=== PATIENT | female | born 1930 | race Hispanic/Latino ===

== ENCOUNTER 2017-12-07 13:41 | Inpatient (IN) | payer MEDICARE, OTHER ==
[2017-12-07 15:02] LABS: Basophils # (Auto) 0.1 K/mm3 (0.0-0.1); Eosinophils # (Auto) 0.1 K/mm3 (0.0-0.4); Eosinophils % (Auto) 1.4 % (0.0-4.3); Hematocrit 35.7 % (30.3-42.9); Hemoglobin 11.8 gm/dl (10.1-14.3); Lymphocytes # (Auto) 1.7 K/mm3 (1.2-5.4); Lymphocytes % (Auto) 21.6 % (13.4-35.0); Mean Corpuscular HGB Conc 33 % (30-34); Mean Corpuscular Hemoglobin 32 pg (28-32); Mean Corpuscular Volume 95 fl (79-97); Monocytes # (Auto) 0.8 K/mm3 (0.0-0.8); Monocytes % (Auto) 10.4 % (0.0-7.3); Platelet Count 249 K/mm3 (140-440); Red Blood Count 3.75 M/mm3 (3.65-5.03); Red Cell Distribution Width 14.4 % (13.2-15.2)
[2017-12-07 15:17] LABS: BUN/Creatinine Ratio 27; Blood Urea Nitrogen 16 mg/dL (7-17); Calcium 9.2 mg/dL (8.4-10.2); Hemolysis Index 5
--- NOTE | 2017-12-07 15:26 | Emergency Department Report ---
ED Shortness of Breath HPI - General Chief Complaint: Dyspnea/Respdistress Stated Complaint: SOB Time Seen by Provider: 12/07/17 14:50 Source: patient, EMS Mode of arrival: Stretcher Limitations: No Limitations - History of Present Illness Initial Comments: 3 days of shortness of breath that p/w nonproductive cough. Afebrile. Runny nose. A couple of months ago, she was treated for pneumonia. Her cough never improved though. She was unable to get into her family doctor. So, she came into the ER for evaluation. -: Gradual - Related Data Home Medications Medication Instructions Recorded Confirmed Last Taken Levothyroxine [Synthroid] 75 mcg PO QAM 12/07/17 12/07/17 12/06/17 Lisinopril [Zestril TAB] 10 mg PO QDAY 12/07/17 12/07/17 12/06/17 Multivitamin [Multiple Vitamins] 1 each PO DAILY 12/07/17 12/07/17 12/06/17 Allergies Allergy/AdvReac Type Severity Reaction Status Date / Time No Known Allergies Allergy Unverified 12/07/17 14:16 ED Review of Systems ROS: Stated complaint: SOB Other details as noted in HPI Comment: All other systems reviewed and negative Respiratory: cough, shortness of breath, SOB with exertion ED Past Medical Hx - Social History Smoking Status: Never Smoker - Medications Home Medications: Home Medications Medication Instructions Recorded Confirmed Last Taken Type Levothyroxine [Synthroid] 75 mcg PO QAM 12/07/17 12/07/17 12/06/17 History Lisinopril [Zestril TAB] 10 mg PO QDAY 12/07/17 12/07/17 12/06/17 History Multivitamin [Multiple Vitamins] 1 each PO DAILY 12/07/17 12/07/17 12/06/17 History ED Physical Exam - General Limitations: No Limitations General appearance: alert, in no apparent distress - Head Head exam: Present: atraumatic, normocephalic - Eye Eye exam: Present: normal appearance - ENT ENT exam: Present: mucous membranes moist - Neck Neck exam: Present: normal inspection - Respiratory Respiratory exam: Present: normal lung sounds bilaterally. Absent: respiratory distress - Cardiovascular Cardiovascular Exam: Present: regular rate, normal rhythm. Absent: systolic murmur, diastolic murmur, rubs, gallop - GI/Abdominal GI/Abdominal exam: Present: soft, tenderness - Extremities Exam Extremities exam: Present: normal inspection, pedal edema - Back Exam Back exam: Present: normal inspection - Neurological Exam Neurological exam: Present: alert, oriented X3 - Psychiatric Psychiatric exam: Present: normal affect, normal mood - Skin Skin exam: Present: warm, dry, intact, normal color. Absent: rash ED Course Vital Signs 12/07/17 12/07/17 12/07/17 14:14 14:30 14:45 Pulse Rate 78 73 Respiratory 16 14 38 H Rate Blood Pressure 114/64 O2 Sat by Pulse 89 Oximetry 12/07/17 12/07/17 12/07/17 15:00 15:16 15:30 Pulse Rate 78 74 71 Respiratory 14 12 25 H Rate Blood Pressure 114/64 153/62 134/55 O2 Sat by Pulse 90 91 91 Oximetry 12/07/17 12/07/17 12/07/17 15:46 16:00 17:00 Pulse Rate 73 76 Respiratory 34 H 37 H Rate Blood Pressure 130/74 130/74 130/74 O2 Sat by Pulse 94 94 91 Oximetry ED Medical Decision Making - Lab Data Result diagrams: 12/07/17 14:35 12/07/17 14:35 - EKG Data -: EKG Interpreted by [facility] EKG shows normal: sinus rhythm, axis, intervals, QRS complexes, ST-T waves - Radiology Data Radiology results: image reviewed - Medical Decision Making 87-year-old female presents past medical history of systems ER with progressive onset shortness of breath. Vitals stable on presentation. Patient is well-appearing. Labwork unremarkable. Chest x-ray shows almost complete white out of the left chest. It is concerning for a massive pleural effusion. CT without contrast has been ordered due to contrast allergy. There is a concern for malignancy. Patient will be admitted for further management. Critical care attestation.: If time is entered above; I have spent that time in minutes in the direct care of this critically ill patient, excluding procedure time. ED Disposition Clinical Impression: Pleural effusion, Dyspnea Disposition: OP ADMIT IP TO THIS HOSP Is pt being admited?: Yes Does the pt Need Aspirin: No Condition: Stable Referrals: PRIMARY CARE, [Primary Care Provider] - 3-5 Days
[2017-12-07] MEDS ORDERED: PROVENTIL IH ONE ×2 (15:30→18:05)
--- NOTE | 2017-12-07 16:10 | History and Physical Report ---
History of Present Illness Chief complaint: I keep coughing, my nose is running History of present illness: 87 YO Female with no PMH presents to ED for evalution. Pt states that she has experienced a runny nose and a nonproductive cough for the past week as well as shortness of breath with worsening symptoms over the past 3 days. Pt seen and evaluated in ED and found to have acute respiratory failure secondary to a large left pleural effusion. Pt denies fever, chills, unintentional weight loss , night sweats, bone pain, trauma, BRBPR, hemoptysis, or recent ill contacts. Pt resides in her home with her son. Pt admitted to medical floor. Past History Past Medical History: No medical history, other (reviewed) Past Surgical History: No surgical history, Other (reviewed) Social history: , lives with family. denies: smoking, alcohol abuse, prescription drug abuse Family history: no significant family history (reviewed) Medications and Allergies Allergies Allergy/AdvReac Type Severity Reaction Status Date / Time No Known Allergies Allergy Unverified 12/07/17 14:16 Home Medications Medication Instructions Recorded Confirmed Last Taken Type Levothyroxine [Synthroid] 75 mcg PO QAM 12/07/17 12/07/17 12/06/17 History Lisinopril [Zestril TAB] 10 mg PO QDAY 12/07/17 12/07/17 12/06/17 History Multivitamin [Multiple Vitamins] 1 each PO DAILY 12/07/17 12/07/17 12/06/17 History Review of Systems Constitutional: no weight loss, no weight gain, no fever, no chills Ears, nose, mouth and throat: post-nasal drip, no ear pain, no ear discharge, no tinnitis, no decreased hearing, no nasal congestion, no nasal discharge, no sinus pressure, no sinus pain Breasts: no change in shape, no swelling, no mass Cardiovascular: no chest pain, no orthopnea, no palpitations, no rapid/ irregular heart beat, no edema, no syncope Respiratory: cough, shortness of breath, no excessive sputum, no hemoptysis, no wheezing Gastrointestinal: no abdominal pain, no nausea, no vomiting, no diarrhea, no constipation Genitourinary Female: no pelvic pain, no flank pain, no menorrhagia, no dysuria , no urinary frequency, no urgency Rectal: no pain, no incontinence, no bleeding Musculoskeletal: no neck stiffness, no neck pain, no shooting arm pain, no arm numbness/tingling, no low back pain Integumentary: no rash, no pruritis, no redness, no sores, no wounds, no jaundice, no boils Neurological: no transient paralysis, no paralysis, no weakness, no parathesias , no numbness, no tingling, no seizures, no syncope Psychiatric: no anxiety, no memory loss, no change in sleep habits, no sleep disturbances, no insomnia, no hypersomnia, no change in appetite, no change in libido, no suicidal ideation Endocrine: no cold intolerance, no heat intolerance, no polyphagia, no excessive thirst, no polydipsia, no polyuria, no nocturia, no flushing Hematologic/Lymphatic: no easy bruising, no easy bleeding, no lymphadenopathy, no lymphedema Allergic/Immunologic: no urticaria, no allergic rhinitis, no wheezing, no persistent infections, no anaphylaxis, no angioedema Exam - Constitutional Vitals: Temp Pulse Resp BP Pulse Ox 16 12/07/17 14:14 General appearance: Present: mild distress - EENT Eyes: Present: PERRL ENT: hearing intact, clear oral mucosa - Neck Neck: Present: supple, normal ROM - Respiratory Respiratory: left: diminished, rhonchi - Cardiovascular Heart Sounds: Present: S1 & S2. Absent: rub, click - Extremities Extremities: pulses symmetrical, No edema Peripheral Pulses: within normal limits - Abdominal General gastrointestinal: Present: soft, non-tender, non-distended, normal bowel sounds Female genitourinary: Present: normal - Integumentary Integumentary: Present: clear, warm, dry - Musculoskeletal Musculoskeletal: generalized weakness - Psychiatric Psychiatric: appropriate mood/affect, intact judgment & insight - Neurologic Neurologic: CNII-XII intact, moves all extremities Results - Labs CBC & Chem 7: 12/07/17 14:35 12/07/17 14:35 Labs: Abnormal lab results 12/07/17 12/07/17 Range/Units 14:35 14:35 [place] % (Auto) 10.4 H (0.0-7.3) % Creatinine 0.6 L (0.7-1.2) mg/dL Glucose 107 H (65-100) mg/dL Assessment and Plan - Patient Problems (1) Acute respiratory failure Current Visit: Yes Status: Acute Qualifiers: Respiratory failure complication: hypoxia Qualified Code(s): J96.01 - Acute respiratory failure with hypoxia Plan to address problem: Supplemental oxygen, nebulizer therapy, supportive care, CT chest, NIPPV as clinically indicated, pulse oximetry, pt comfortable, pt maintaining sao2 above 92% on 2-3 L supplemental oxygen. (2) Pleural effusion Current Visit: Yes Status: Acute Plan to address problem: suspect malignant effusion, Pulmonary consulted, IR consulted for thoracentesis , supportive care. (3) DVT prophylaxis Current Visit: Yes Status: Acute
[2017-12-07] MEDS ORDERED: SODIUM CHLORIDE FLUSH SYRINGE 10 ML IV PRN (16:11)
[2017-12-07] MEDS ORDERED: ZOFRAN IV PRN (16:11)
[2017-12-07] MEDS ORDERED: PROVENTIL IH PRN (16:11)
[2017-12-07] MEDS ORDERED: TYLENOL PO PRN (16:11)
--- NOTE | 2017-12-07 16:47 | XRay Report ---
FINAL REPORT PROCEDURE: XR CHEST 1V AP TECHNIQUE: Chest radiograph anteroposterior view. CPT 47495 HISTORY: SOB COMPARISON: No prior studies are available for comparison. FINDINGS: There is a very large pleural-based density in the left sid thorax. There appears to be a large left pleural effusion. Underlying mass is not excluded. Right lung is clear. Heart appears to be enlarged. Visualized pulmonary vasculature does not appear to be distended. No acute bony abnormalities are identified. IMPRESSION: Large left pleural effusion appears to be present. Underlying mass cannot be excluded. Cardiomegaly..
--- NOTE | 2017-12-07 17:23 | Cat Scan Report ---
FINAL REPORT PROCEDURE: CT CHEST WO CON TECHNIQUE: Computerized axial tomography of the chest was performed without contrast material. This study is performed without intravenous contrast and the sensitivity for pathology, including neoplasms, adenopathy, abscess, pulmonary embolism and aortic dissection, is reduced. HISTORY: SOB COMPARISON: Chest x-ray earlier today. TECHNICAL QUALITY: Satisfactory. FINDINGS: Pericardium: No evidence of pericardial effusion. Thoracic aorta: Atherosclerotic changes thoracic aorta. No aneurysm is seen. Coronary arteries: Are partially calcified indicating atherosclerotic disease. Mediastinum and hilar regions: Nonspecific subcentimeter lymph nodes are visualized. No pathologically enlarged lymph nodes or masses are identified. Lung [place]: There is a very large left pleural effusion. There is marked volume loss in the left lung. Only a small portion of the left upper lobe is aerated which shows patchy alveolar densities. There is some linear atelectasis in the right upper lobe medially. No effusion is seen on the right however there appear to be multiple noncalcified pulmonary nodules measuring up to 4 millimeters scattered in the periphery of the right lung. This could represent non calcified granulomatous change or fibrotic change. I cannot exclude metastatic disease. The right lung otherwise is clear. Upper abdomen: No acute or focal abnormality is seen. Other: There is a sclerotic lesion visualized in the left side of the T6 vertebral body measuring approximately 1.4 x 1.5 by 1.6 centimeters suspicious for blastic metastatic disease. IMPRESSION: Very large left pleural effusion is present with diffuse compressive atelectasis of the entire left lung. Underlying mass cannot be excluded. Numerous noncalcified small peripheral nodular density seen in the right lung as described. The differential would include metastatic disease, noncalcified granulomatous change or fibrotic change. Abnormal sclerotic density T6 vertebral body as described suspicious for blastic metastatic disease. Nuclear medicine whole-body bone scan may be helpful for further characterization and evaluation..
[2017-12-07] MEDS: SODIUM CHLORIDE FLUSH SYRINGE 10 ML IV SCH (22:39)
--- NOTE | 2017-12-08 09:11 | Progress Note ---
<GATO HINES - Last Filed: 12/08/17 13:51> Assessment and Plan Assessment and plan: 87 YO Female with no presented to ED for evalution with complaints of cough with very thin sputum and increasing shortness of breath. Pleural effusion Suspected malignant effusion, status post thoracentesis, will follow fluid analysis Ob Tech consult Acute respiratory failure Likely secondary to above, patient will continue supplemental oxygen, nebulizer PRN Hypothyroidism We'll order TSH and T4, patient to resume levothyroxine Hypertension Continue home antihypertensives DVT prophylaxis SCDs for now History Interval history: Patient was seen and examined. On 3L o2 via NC. Labs, chart notes, nursing notes reviewed. Hospitalist Physical - Constitutional Vitals: Temp Pulse Resp BP Pulse Ox 98.7 F 70 20 123/68 90 12/08/17 07:12 12/08/17 07:12 12/08/17 07:12 12/08/17 07:12 12/08/17 07:12 General appearance: Present: no acute distress, well-nourished - EENT Eyes: Present: PERRL, EOM intact ENT: hearing intact, dentition normal - Neck Neck: Present: supple, normal ROM - Respiratory Respiratory effort: normal Respiratory: right: CTA, left: diminished, rhonchi - Cardiovascular Rhythm: regular Heart Sounds: Present: S1 & S2 - Extremities Extremities: no ischemia, No edema - Abdominal General gastrointestinal: soft, non-tender, non-distended - Integumentary Integumentary: Present: clear, warm, dry - Psychiatric Psychiatric: appropriate mood/affect, intact judgment & insight, cooperative - Neurologic Neurologic: CNII-XII intact, moves all extremities Results - Labs CBC & Chem 7: 12/07/17 14:35 12/07/17 14:35 Labs: Laboratory Last Values WBC 7.7 K/mm3 (4.5-11.0) 12/07/17 14:35 RBC 3.75 M/mm3 (3.65-5.03) 12/07/17 14:35 Hgb 11.8 gm/dl (10.1-14.3) 12/07/17 14:35 Hct 35.7 % (30.3-42.9) 12/07/17 14:35 MCV 95 fl (79-97) 12/07/17 14:35 MCH 32 pg (28-32) 12/07/17 14:35 MCHC 33 % (30-34) 12/07/17 14:35 RDW 14.4 % (13.2-15.2) 12/07/17 14:35 Plt Count 249 K/mm3 (140-440) 12/07/17 14:35 Lymph % (Auto) 21.6 % (13.4-35.0) 12/07/17 14:35 [place] % (Auto) 10.4 % (0.0-7.3) H 12/07/17 14:35 Eos % (Auto) 1.4 % (0.0-4.3) 12/07/17 14:35 Baso % (Auto) 1.0 % (0.0-1.8) 12/07/17 14:35 Lymph # 1.7 K/mm3 (1.2-5.4) 12/07/17 14:35 [place] # 0.8 K/mm3 (0.0-0.8) 12/07/17 14:35 Eos # 0.1 K/mm3 (0.0-0.4) 12/07/17 14:35 Baso # 0.1 K/mm3 (0.0-0.1) 12/07/17 14:35 Seg Neutrophils % 65.6 % (40.0-70.0) 12/07/17 14:35 Seg Neutrophils # 5.1 K/mm3 (1.8-7.7) 12/07/17 14:35 Sodium 137 mmol/L (137-145) 12/07/17 14:35 Potassium 4.1 mmol/L (3.6-5.0) 12/07/17 14:35 Chloride 101.3 mmol/L (98-107) 12/07/17 14:35 Carbon Dioxide 26 mmol/L (22-30) 12/07/17 14:35 Anion Gap 14 mmol/L 12/07/17 14:35 BUN 16 mg/dL (7-17) 12/07/17 14:35 Creatinine 0.6 mg/dL (0.7-1.2) L 12/07/17 14:35 Estimated GFR > 60 ml/min 12/07/17 14:35 BUN/Creatinine Ratio 27 % 12/07/17 14:35 Glucose 107 mg/dL (65-100) H 12/07/17 14:35 Calcium 9.2 mg/dL (8.4-10.2) 12/07/17 14:35 Troponin T < 0.010 ng/mL (0.00-0.029) 12/07/17 15:33 NT-Pro-B Natriuret Pep 48.51 pg/mL (0-900) 12/07/17 15:33 <ARELIS VELAZQUEZ - Last Filed: 12/08/17 19:03> Assessment and Plan Assessment and plan: I saw and evaluated the patient. I agree with the findings and the plan of care as documented in the physician medical support assistant ~note, with the following corrections and additions. Pneumothorax * Surgery consulted for chest tube placement. Discussed with daughter and patient in detail. Will also follow thoracentesis fluid analysis. Without any difficulty at this time. The high probability of a clinically significant, sudden or life threatening deterioration of the [pulmonary] system(s) required my full and direct attention , intervention and personal management. The aggregate critical care time was [35 ] minutes. This time is in addition to time spent performing reported procedures but includes the following: [x] Data Review and interpretation [x] Patient assessment and monitoring of vital signs [x] Documentation [x] Medication orders and management Hospitalist Physical - Constitutional Vitals: Temp Pulse Resp BP Pulse Ox 98.0 F 76 20 134/69 94 12/08/17 14:53 12/08/17 14:53 12/08/17 14:53 12/08/17 14:53 12/08/17 14:53 Results - Labs CBC & Chem 7: 12/07/17 14:35 12/07/17 14:35 Labs: Laboratory Last Values WBC 7.7 K/mm3 (4.5-11.0) 12/07/17 14:35 RBC 3.75 M/mm3 (3.65-5.03) 12/07/17 14:35 Hgb 11.8 gm/dl (10.1-14.3) 12/07/17 14:35 Hct 35.7 % (30.3-42.9) 12/07/17 14:35 MCV 95 fl (79-97) 12/07/17 14:35 MCH 32 pg (28-32) 12/07/17 14:35 MCHC 33 % (30-34) 12/07/17 14:35 RDW 14.4 % (13.2-15.2) 12/07/17 14:35 Plt Count 249 K/mm3 (140-440) 12/07/17 14:35 Lymph % (Auto) 21.6 % (13.4-35.0) 12/07/17 14:35 [place] % (Auto) 10.4 % (0.0-7.3) H 12/07/17 14:35 Eos % (Auto) 1.4 % (0.0-4.3) 12/07/17 14:35 Baso % (Auto) 1.0 % (0.0-1.8) 12/07/17 14:35 Lymph # 1.7 K/mm3 (1.2-5.4) 12/07/17 14:35 [place] # 0.8 K/mm3 (0.0-0.8) 12/07/17 14:35 Eos # 0.1 K/mm3 (0.0-0.4) 12/07/17 14:35 Baso # 0.1 K/mm3 (0.0-0.1) 12/07/17 14:35 Seg Neutrophils % 65.6 % (40.0-70.0) 12/07/17 14:35 Seg Neutrophils # 5.1 K/mm3 (1.8-7.7) 12/07/17 14:35 PT 13.0 Sec. (12.2-14.9) 12/08/17 09:51 INR 0.94 (0.87-1.13) 12/08/17 09:51 Sodium 137 mmol/L (137-145) 12/07/17 14:35 Potassium 4.1 mmol/L (3.6-5.0) 12/07/17 14:35 Chloride 101.3 mmol/L (98-107) 12/07/17 14:35 Carbon Dioxide 26 mmol/L (22-30) 12/07/17 14:35 Anion Gap 14 mmol/L 12/07/17 14:35 BUN 16 mg/dL (7-17) 12/07/17 14:35 Creatinine 0.6 mg/dL (0.7-1.2) L 12/07/17 14:35 Estimated GFR > 60 ml/min 12/07/17 14:35 BUN/Creatinine Ratio 27 % 12/07/17 14:35 Glucose 107 mg/dL (65-100) H 12/07/17 14:35 Calcium 9.2 mg/dL (8.4-10.2) 12/07/17 14:35 Troponin T < 0.010 ng/mL (0.00-0.029) 12/07/17 15:33 NT-Pro-B Natriuret Pep 48.51 pg/mL (0-900) 12/07/17 15:33 TSH 1.380 mlU/mL (0.270-4.200) 12/08/17 15:28 Thyroxine (T4) 8.9 ug/dL (4.0-12.0) 12/08/17 15:28 Fluid Type Pleural 12/08/17 Unknown Fluid Color Yellow 12/08/17 Unknown Fluid Appearance Clear 12/08/17 Unknown Fluid pH 7.467 12/08/17 Unknown Fluid WBC 120 /mm3 12/08/17 Unknown Fluid RBC 117 /mm3 12/08/17 Unknown Fluid Seg Neutrophils 3.0 % 12/08/17 Unknown Fluid Lymphocytes 30.0 % 12/08/17 Unknown Fluid Reactive Lymphs 0 % 12/08/17 Unknown Fluid Monocytes 62.0 % 12/08/17 Unknown Fluid Eosinophils 5.0 % 12/08/17 Unknown Fluid Basophils 0 % 12/08/17 Unknown Fluid Comment Diff performed 12/08/17 Unknown - Imaging and Cardiology Chest x-ray: image reviewed (pneumothorax)
[2017-12-08] MEDS: SODIUM CHLORIDE FLUSH SYRINGE 10 ML IV SCH ×2 (09:14→23:05)
[2017-12-08 10:48] LABS: INR 0.94 (0.87-1.13)
[2017-12-08 12:51] LABS: pH, Body Fluid 7.467
--- NOTE | 2017-12-08 12:51 | Procedure Note ---
Date of procedure: 12/08/17 Pre-op diagnosis: left pleural effusion Post-op diagnosis: same Procedure: US thoracentesis, left Anesthesia: local Surgeon: MONSE CALZADA Estimated blood loss: none Pathology: list (120cc) Specimen disposition: to lab Condition: stable Disposition: floor
--- NOTE | 2017-12-08 13:50 | Ultrasound Report ---
ULTRASOUND THORACENTESIS History: Left pleural effusion Description of procedure: Informed consent was obtained. Sterile technique was utilized. 1% lidocaine for skin anesthesia. Using ultrasound guidance, a 5 [place] centesis needle was advanced into the left pleural space. There was spontaneous return of relatively clear yellow fluid. 2.2 L of fluid was aspirated. 120 cc of fluid was sent to the lab for analysis. No complications. Impression: Successful ultrasound guided left thoracentesis as described.
--- NOTE | 2017-12-08 14:13 | XRay Report ---
AP CHEST: HISTORY: Short of breath, left pleural effusion, recent ultrasound-guided left thoracentesis Recent ultrasound-guided left thoracentesis was performed in which 2.2 L of fluid was removed. Followup AP chest demonstrates a small to medium left pneumothorax which is estimated at 15-20%. The pneumothorax measures up to 1.8 cm from the left lateral thoracic wall. There is near-complete evacuation of the left pleural fluid. The right lung remains clear. Heart size is within normal limits. IMPRESSION: Left pneumothorax after thoracentesis as described. Dr. Gibson was paged at 1400 hrs. to be notified of these findings. I went to see the patient on the second floor she was in no acute distress.
[2017-12-08 14:22] LABS: Total Cells Counted 100 /mm3
--- NOTE | 2017-12-08 17:11 | XRay Report ---
FINAL REPORT PROCEDURE: XR CHEST 1V AP 1605 hours 12/08/2017 TECHNIQUE: Chest radiograph anteroposterior view. CPT 33919 HISTORY: re-evaluate left pneumothorax COMPARISON: Prior study performed 1346 hours on 12/08/2017 FINDINGS: Large left-sided pneumothorax again visualized. This has enlarged. Previously the distance between the lateral pleural surface in the lateral chest wall inferiorly was 1.8 centimeters now 2.7 centimeters. There is increasing consolidation in the left lung suggesting atelectasis or pneumonia. Underlying pulmonary nodules are not excluded. Small amount of right basilar atelectasis is visualized. Heart size upper normal. Pulmonary vasculature is not distended. IMPRESSION: Large left-sided pneumothorax has enlarged since earlier today. There is worsening consolidation in the left lung as described above. Heart size upper normal.
[2017-12-08] MEDS ORDERED: XYLOCAINE 1% 20 mL INFILTRATI STA (18:25)
[2017-12-08] MEDS ORDERED: ATIVAN IV ONE (18:45)
--- NOTE | 2017-12-08 18:53 | Consultation ---
History of Present Illness Consult date: 12/08/17 Requesting physician: ARELIS VELAZQUEZ Reason for consult: dyspnea History of present illness: 87 yo with SOB since her "pneumonia" 07/2017, but particularly worse the past week or so. She has had cough/congestion. No wheezing, fevers, chills, chest pain, hemoptysis. Lifelong nonsmoker. Active Medications Acetaminophen (Tylenol) 650 mg PO Q4H PRN PRN Reason: Pain MILD(1-3)/Fever >100.5/MORA Albuterol (Proventil) 2.5 mg IH Q4HRT PRN PRN Reason: Shortness Of Breath Levothyroxine Sodium (Synthroid) 75 mcg PO DAILY@0600 TOMY Lisinopril (Zestril) 10 mg PO QDAY TOMY Ondansetron HCl (Zofran) 4 mg IV Q8H PRN PRN Reason: Nausea And Vomiting Oxycodone/Acetaminophen (Percocet 5/325) 1 tab PO Q6H PRN PRN Reason: Pain, Moderate (4-6) Sodium Chloride (Sodium Chloride Flush Syringe 10 Ml) 10 ml IV BID [facility] Last Admin: 12/08/17 09:14 Dose: 10 ml Sodium Chloride (Sodium Chloride Flush Syringe 10 Ml) 10 ml IV PRN PRN PRN Reason: LINE FLUSH Past History Past Medical History: No medical history, other (reviewed) Past Surgical History: No surgical history, Other (reviewed) Social history: , lives with family. denies: smoking, alcohol abuse, prescription drug abuse Family history: no significant family history (reviewed) Medications and Allergies Allergies Allergy/AdvReac Type Severity Reaction Status Date / Time No Known Allergies Allergy Unverified 12/07/17 14:16 Home Medications Medication Instructions Recorded Confirmed Last Taken Type Levothyroxine [Synthroid] 75 mcg PO QAM 12/07/17 12/07/17 12/06/17 History Lisinopril [Zestril TAB] 10 mg PO QDAY 12/07/17 12/07/17 12/06/17 History Multivitamin [Multiple Vitamins] 1 each PO DAILY 12/07/17 12/07/17 12/06/17 History Active Meds: Active Medications Acetaminophen (Tylenol) 650 mg PO Q4H PRN PRN Reason: Pain MILD(1-3)/Fever >100.5/MORA Albuterol (Proventil) 2.5 mg IH Q4HRT PRN PRN Reason: Shortness Of Breath Levothyroxine Sodium (Synthroid) 75 mcg PO DAILY@0600 [facility] Lisinopril (Zestril) 10 mg PO QDAY [facility] Ondansetron HCl (Zofran) 4 mg IV Q8H PRN PRN Reason: Nausea And Vomiting Oxycodone/Acetaminophen (Percocet 5/325) 1 tab PO Q6H PRN PRN Reason: Pain, Moderate (4-6) Sodium Chloride (Sodium Chloride Flush Syringe 10 Ml) 10 ml IV BID [facility] Last Admin: 12/08/17 09:14 Dose: 10 ml Sodium Chloride (Sodium Chloride Flush Syringe 10 Ml) 10 ml IV PRN PRN PRN Reason: LINE FLUSH Physical Examination Vital signs: Vital Signs Resp 16 12/07/17 14:14 General appearance: no acute distress, alert Eyes: non-icteric Neck: supple Effort: normal Ascultation: Left: diminished breath sounds Cardiovascular: regular rate and rhythm (no mrg) Gastrointestinal: normoactive bowel sounds, soft, non-tender, non-distended Integumentary: normal Extremities: no cyanosis, no edema Musculoskeletal: no deformities normal mental status, non-focal exam, pupils equal and round, CN II-XII normal mood appropriate, affect normal Results - Laboratory Findings CBC and BMP: 12/07/17 14:35 12/07/17 14:35 PT/INR, D-dimer PT 13.0 Sec. (12.2-14.9) 12/08/17 09:51 INR 0.94 (0.87-1.13) 12/08/17 09:51 Abnormal lab findings: Abnormal Labs 12/07/17 12/07/17 14:35 14:35 Cole % (Auto) 10.4 H Creatinine 0.6 L Glucose 107 H - Diagnostic Findings Chest x-ray: report reviewed, image reviewed CT scan - chest: report reviewed, image reviewed Assessment and Plan Imp: 1. Large L effusion; DDx includes parapneumonic versus malignancy 2. PTX versus trapped lung 3. Compressive atelectasis 4. Essential HTN 5. Acute respiratory failure, hypoxia Rec: 1. Add Levaquin 750mg daily 2. F/u PFA including culture/cytology 3. General surgery has agreed to place chest tube; if lung does not fully re- expand would be compatible with trapped lung 4. Initial CT chest basically worthless due to atelectatic L lung; will repeat in AM with contrast s/p drainage of the effusion to ensure no underlying mass, etc. Plan of care reviewed with patient, she understands/agrees Thanks for the consult. Will follow.
--- NOTE | 2017-12-08 19:39 | Consultation ---
History of Present Illness Consult date: 12/08/17 Requesting physician: ARELIS WITT Chief complaint: pneumothorax - History of present illness History of present illness: 87 yo F with hx of hypothyroidism, HTN presented to hospital with increasing SOB and dyspnea on exertion. The patient was found to have a left pleural effusion. She underwent thoracentesis today and post procedure CXR showed pneumothorax. The subsequent Xray several hours later showed worsening of Pneumothorax. The patient states she feels SOB and is having pain over her left chest with deep breaths. Called by Dr. Witt to evaluate for chest tube placement. Past History Past Medical History: hypertension, other (hypothyroidism) Past Surgical History: No surgical history, Other (reviewed) Social history: , lives with family. denies: smoking, alcohol abuse, prescription drug abuse Family history: no significant family history (reviewed) Medications and Allergies Allergies Allergy/AdvReac Type Severity Reaction Status Date / Time No Known Allergies Allergy Unverified 12/07/17 14:16 Home Medications Medication Instructions Recorded Confirmed Last Taken Type Levothyroxine [Synthroid] 75 mcg PO QAM 12/07/17 12/07/17 12/06/17 History Lisinopril [Zestril TAB] 10 mg PO QDAY 12/07/17 12/07/17 12/06/17 History Multivitamin [Multiple Vitamins] 1 each PO DAILY 12/07/17 12/07/17 12/06/17 History Active Meds: Active Medications Acetaminophen (Tylenol) 650 mg PO Q4H PRN PRN Reason: Pain MILD(1-3)/Fever >100.5/MORA Albuterol (Proventil) 2.5 mg IH Q4HRT PRN PRN Reason: Shortness Of Breath Levofloxacin (Levaquin) 750 mg PO Q24HR TOMY Levothyroxine Sodium (Synthroid) 75 mcg PO DAILY@0600 TOMY Lisinopril (Zestril) 10 mg PO QDAY TOMY Ondansetron HCl (Zofran) 4 mg IV Q8H PRN PRN Reason: Nausea And Vomiting Oxycodone/Acetaminophen (Percocet 5/325) 1 tab PO Q6H PRN PRN Reason: Pain, Moderate (4-6) Sodium Chloride (Sodium Chloride Flush Syringe 10 Ml) 10 ml IV BID [facility] Last Admin: 04/19/18 09:14 Dose: 10 ml Sodium Chloride (Sodium Chloride Flush Syringe 10 Ml) 10 ml IV PRN PRN PRN Reason: LINE FLUSH Exam Vital Signs Resp 16 12/07/17 14:14 Narrative exam: Gen: AAOx3. NAD ENT: no scleral icterus or conjunctival pallor CV: s1, s2+ resp: even and unlabored Abd: soft Ext: no c/c/e Results - Labs 12/07/17 14:35 12/07/17 14:35 Thyroid panel 12/08/17 12/08/17 Range/Units 15:28 15:28 TSH 1.380 (0.270-4.200) mlU/mL Thyroxine (T4) 8.9 (4.0-12.0) ug/dL Pituitary panel 12/08/17 12/08/17 Range/Units 15:28 15:28 TSH 1.380 (0.270-4.200) mlU/mL Thyroxine (T4) 8.9 (4.0-12.0) ug/dL - Imaging Chest x-ray: report reviewed, image reviewed CT scan - chest: report reviewed, image reviewed Assessment and Plan 87 yo F with Left sided pneumothorax s/p thoracentesis Plan: 1. will place left sided chest tube. All risks, benefits and alternatives discussed with patient and questions answered, consent signed. 2. Chest tube -[id number] suction 3. pulm toilet/incentive spirometry 4. wean o2 5. prn pain control 6. CXR in am Thank you for this consultation, please call with questions or concerns.
--- NOTE | 2017-12-08 19:49 | Procedure Note ---
Date of procedure: 12/08/17 Pre-op diagnosis: left side pneumothorax Post-op diagnosis: same Procedure: placement of left sided chest tube Findings: 87 yo F with LEFT sided pneumothorax s/p thoracentesis today. All risks, benefits, and alternatives of chest tube placement discussed with patient and consent signed. Left chest was prepped and draped in usual sterile fashion. A time out was performed with nursing present. The skin over the 4th intercostal space in the midaxillary line was infiltrated with 1% lidocaine. A small incision was made using a 15 blade. The subcutaneous tissue and pleural space were infiltrated with 1% lidocaine. The pigtail catheter over dilator/stylette was inserted through the incision and over the rib. This was advanced through the pleura and a pop was felt. The stylette was withdrawn and there was air and pleural fluid aspirated through the syringe. The pigtail catheter was advanced over the dilator and the dilator withdrawn. There was a amaya of air that exited the catheter. This was connected to tubing and connected to pleur-e-vac on -[id number] suction. There was respiratory variation and tidaling in the tubing. The pigtail catheter was secured to the skin using 0-silk drain stitch. This was covered with an occlusive sterile dressing. There was a forced expiratory air leak in the pleur-e-vac after the procedure. The patient tolerated the procedure well. All sharps and instruments were disposed of appropriately. Implants: Pigtail catheter Anesthesia: local Surgeon: NEISHA MONTE Estimated blood loss: minimal Pathology: none Condition: stable Disposition: floor
--- NOTE | 2017-12-08 20:05 | XRay Report ---
FINAL REPORT PROCEDURE: XR CHEST 1V AP TECHNIQUE: Chest radiograph anteroposterior view. CPT 12292 HISTORY: chest tube placement COMPARISON: Prior chest x-ray today at 1606 hours FINDINGS: Since the prior study earlier today a small caliber left chest tube has been placed. There is only small pneumothorax remaining inferiorly laterally. Patchy alveolar densities are present throughout the lower 2/3 of the left lung may representing atelectasis. Pneumonia and/or pulmonary nodules are not excluded. Subcutaneous emphysematous changes are seen along the lateral aspect of the left chest wall. Right lung is clear. Heart size and pulmonary vasculature appear normal. IMPRESSION: Interval placement small caliber left chest tube. Only small pneumothorax remaining inferiorly laterally. Patchy alveolar densities again visualized lower 2/3 left lung as described.
[2017-12-08] MEDS: LEVAQUIN PO SCH (23:05)
[2017-12-09] MEDS: SYNTHROID PO SCH (06:06)
[2017-12-09] MEDS: PERCOCET 5/325 PO PRN ×3 (06:24→22:05)
--- NOTE | 2017-12-09 08:36 | XRay Report ---
PORTABLE CHEST INDICATION: Left chest tube. COMPARISON: 7:44 PM yesterday. FINDINGS: Portable, frontal chest radiograph, 7:37 AM, 12/09/2017 again demonstrates a left lower lung small bore chest tube with its tip pointing caudad. No significant left pneumothorax. Mild left subcutaneous emphysema persists. Left mid to lower lung opacities again present, though slightly improved/less dense. Right hemidiaphragm approximately 2.5 cm higher than the left. Mild hazy opacity blunting the right lateral costophrenic angle may represent atelectasis and/or pleural fluid. Stable cardiomediastinal silhouette and bony degenerative changes. EKG leads. Mild apical scarring/pleural thickening, more so on the left. CONCLUSION: 1. Stable left lower lung small bore chest tube and left subcutaneous emphysema without significant pneumothorax. Improving left mid to lower lung airspace opacity. 2. Mildly elevated right hemidiaphragm and right basilar haziness. Thank you for the opportunity to participate in this patient's care.
[2017-12-09] MEDS ORDERED: ZOFRAN IV PRN (08:40)
[2017-12-09] MEDS ORDERED: NACL ONE (08:43)
--- NOTE | 2017-12-09 09:10 | Progress Note ---
<GATO HINES - Last Filed: 12/09/17 15:54> Assessment and Plan Assessment and plan: 87 YO Female with no presented to ED for evalution with complaints of cough with very thin sputum and increasing shortness of breath. 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 Sed Special Education Teacher following, oncologist consulted Acute DVT EVIDENCE OF ACUTE DVT IN THE LT.MID PERONEAL VEIN AT MID CALF, Patient on heparin Acute PE Secondary to above, patient initiated on Heparin drip PTX Patient will continue chest tube suction Pulm toilet/incentive spirometry Acute respiratory failure Likely secondary to above, patient will continue supplemental oxygen, nebulizer PRN Hypothyroidism We'll order TSH and T4, patient to resume levothyroxine Hypertension Continue home antihypertensives DVT prophylaxis Patient on heparin Treatment plan discussed with patient and daughter Estrella History Interval history: Patient was seen and examined. Complains of pain at incision site. No other complaints at this time. Labs, chart notes, nursing notes reviewed. Hospitalist Physical - Constitutional Vitals: Temp Pulse Resp BP Pulse Ox 97.7 F 76 19 124/57 96 12/09/17 07:24 12/09/17 07:24 12/09/17 07:24 12/09/17 07:24 12/09/17 07:24 General appearance: Present: no acute distress, well-nourished - EENT Eyes: Present: PERRL, EOM intact ENT: hearing intact, clear oral mucosa - Neck Neck: Present: supple, normal ROM - Respiratory Respiratory effort: normal Respiratory: right: CTA, left: diminished - Cardiovascular Rhythm: regular Heart Sounds: Present: S1 & S2 - Extremities Extremities: no ischemia, No edema - Abdominal General gastrointestinal: soft, non-tender, non-distended - Integumentary Integumentary: Present: clear, warm, dry - Psychiatric Psychiatric: appropriate mood/affect, intact judgment & insight, cooperative - Neurologic Neurologic: CNII-XII intact, moves all extremities Results - Labs CBC & Chem 7: 12/09/17 12:07 12/07/17 14:35 Labs: Laboratory Last Values WBC 7.7 K/mm3 (4.5-11.0) 12/07/17 14:35 RBC 3.75 M/mm3 (3.65-5.03) 12/07/17 14:35 Hgb 11.8 gm/dl (10.1-14.3) 12/07/17 14:35 Hct 35.7 % (30.3-42.9) 12/07/17 14:35 MCV 95 fl (79-97) 12/07/17 14:35 MCH 32 pg (28-32) 12/07/17 14:35 MCHC 33 % (30-34) 12/07/17 14:35 RDW 14.4 % (13.2-15.2) 12/07/17 14:35 Plt Count 249 K/mm3 (140-440) 12/07/17 14:35 Lymph % (Auto) 21.6 % (13.4-35.0) 12/07/17 14:35 [place] % (Auto) 10.4 % (0.0-7.3) H 12/07/17 14:35 Eos % (Auto) 1.4 % (0.0-4.3) 12/07/17 14:35 Baso % (Auto) 1.0 % (0.0-1.8) 12/07/17 14:35 Lymph # 1.7 K/mm3 (1.2-5.4) 12/07/17 14:35 [place] # 0.8 K/mm3 (0.0-0.8) 12/07/17 14:35 Eos # 0.1 K/mm3 (0.0-0.4) 12/07/17 14:35 Baso # 0.1 K/mm3 (0.0-0.1) 12/07/17 14:35 Seg Neutrophils % 65.6 % (40.0-70.0) 12/07/17 14:35 Seg Neutrophils # 5.1 K/mm3 (1.8-7.7) 12/07/17 14:35 PT 13.0 Sec. (12.2-14.9) 12/08/17 09:51 INR 0.94 (0.87-1.13) 12/08/17 09:51 Sodium 137 mmol/L (137-145) 12/07/17 14:35 Potassium 4.1 mmol/L (3.6-5.0) 12/07/17 14:35 Chloride 101.3 mmol/L (98-107) 12/07/17 14:35 Carbon Dioxide 26 mmol/L (22-30) 12/07/17 14:35 Anion Gap 14 mmol/L 12/07/17 14:35 BUN 16 mg/dL (7-17) 12/07/17 14:35 Creatinine 0.6 mg/dL (0.7-1.2) L 12/07/17 14:35 Estimated GFR > 60 ml/min 12/07/17 14:35 BUN/Creatinine Ratio 27 % 12/07/17 14:35 Glucose 107 mg/dL (65-100) H 12/07/17 14:35 Calcium 9.2 mg/dL (8.4-10.2) 12/07/17 14:35 Troponin T < 0.010 ng/mL (0.00-0.029) 12/07/17 15:33 NT-Pro-B Natriuret Pep 48.51 pg/mL (0-900) 12/07/17 15:33 TSH 1.380 mlU/mL (0.270-4.200) 12/08/17 15:28 Thyroxine (T4) 8.9 ug/dL (4.0-12.0) 12/08/17 15:28 Fluid Type Pleural 12/08/17 Unknown Fluid Color Yellow 12/08/17 Unknown Fluid Appearance Clear 12/08/17 Unknown Fluid pH 7.467 12/08/17 Unknown Fluid WBC 120 /mm3 12/08/17 Unknown Fluid RBC 117 /mm3 12/08/17 Unknown Fluid Seg Neutrophils 3.0 % 12/08/17 Unknown Fluid Lymphocytes 30.0 % 12/08/17 Unknown Fluid Reactive Lymphs 0 % 12/08/17 Unknown Fluid Monocytes 62.0 % 12/08/17 Unknown Fluid Eosinophils 5.0 % 12/08/17 Unknown Fluid Basophils 0 % 12/08/17 Unknown Fluid Comment Diff performed 12/08/17 Unknown <ARELIS VELAZQUEZ - Last Filed: 12/09/17 21:27> Assessment and Plan Assessment and plan: I saw and evaluated the patient. I agree with the findings and the plan of care as documented in the Physician Kettle Tender's~note, with the following corrections and additions. Findings discharged with patient. Oncologist consulted. Heparin started. Hospitalist Physical - Constitutional Vitals: Temp Pulse Resp BP Pulse Ox 97.5 F L 76 16 108/49 98 12/09/17 13:54 12/09/17 10:00 12/09/17 13:54 12/09/17 13:54 12/09/17 10:00 Results - Labs CBC & Chem 7: 12/09/17 12:07 12/07/17 14:35 Labs: Laboratory Last Values WBC 7.7 K/mm3 (4.5-11.0) 12/07/17 14:35 RBC 3.75 M/mm3 (3.65-5.03) 12/07/17 14:35 Hgb 12.0 gm/dl (10.1-14.3) 12/09/17 12:07 Hct 36.4 % (30.3-42.9) 12/09/17 12:07 MCV 95 fl (79-97) 12/07/17 14:35 MCH 32 pg (28-32) 12/07/17 14:35 MCHC 33 % (30-34) 12/07/17 14:35 RDW 14.4 % (13.2-15.2) 12/07/17 14:35 Plt Count 240 K/mm3 (140-440) 12/09/17 12:07 Lymph % (Auto) 21.6 % (13.4-35.0) 12/07/17 14:35 [place] % (Auto) 10.4 % (0.0-7.3) H 12/07/17 14:35 Eos % (Auto) 1.4 % (0.0-4.3) 12/07/17 14:35 Baso % (Auto) 1.0 % (0.0-1.8) 12/07/17 14:35 Lymph # 1.7 K/mm3 (1.2-5.4) 12/07/17 14:35 [place] # 0.8 K/mm3 (0.0-0.8) 12/07/17 14:35 Eos # 0.1 K/mm3 (0.0-0.4) 12/07/17 14:35 Baso # 0.1 K/mm3 (0.0-0.1) 12/07/17 14:35 Seg Neutrophils % 65.6 % (40.0-70.0) 12/07/17 14:35 Seg Neutrophils # 5.1 K/mm3 (1.8-7.7) 12/07/17 14:35 PT 13.7 Sec. (12.2-14.9) 12/09/17 12:07 INR 1.00 (0.87-1.13) 12/09/17 12:07 APTT 33.7 Sec. (24.2-36.6) 12/09/17 12:07 Heparin Anti-Xa Level 0.54 U.I./ml (0.3-0.7) 12/09/17 18:50 Sodium 137 mmol/L (137-145) 12/07/17 14:35 Potassium 4.1 mmol/L (3.6-5.0) 12/07/17 14:35 Chloride 101.3 mmol/L (98-107) 12/07/17 14:35 Carbon Dioxide 26 mmol/L (22-30) 12/07/17 14:35 Anion Gap 14 mmol/L 12/07/17 14:35 BUN 16 mg/dL (7-17) 12/07/17 14:35 Creatinine 0.6 mg/dL (0.7-1.2) L 12/07/17 14:35 Estimated GFR > 60 ml/min 12/07/17 14:35 BUN/Creatinine Ratio 27 % 12/07/17 14:35 Glucose 107 mg/dL (65-100) H 12/07/17 14:35 Calcium 9.2 mg/dL (8.4-10.2) 12/07/17 14:35 Troponin T < 0.010 ng/mL (0.00-0.029) 12/07/17 15:33 NT-Pro-B Natriuret Pep 48.51 pg/mL (0-900) 12/07/17 15:33 TSH 1.380 mlU/mL (0.270-4.200) 12/08/17 15:28 Thyroxine (T4) 8.9 ug/dL (4.0-12.0) 12/08/17 15:28 Fluid Type Pleural 12/08/17 Unknown Fluid Color Yellow 12/08/17 Unknown Fluid Appearance Clear 12/08/17 Unknown Fluid pH 7.467 12/08/17 Unknown Fluid WBC 120 /mm3 12/08/17 Unknown Fluid RBC 117 /mm3 12/08/17 Unknown Fluid Seg Neutrophils 3.0 % 12/08/17 Unknown Fluid Lymphocytes 30.0 % 12/08/17 Unknown Fluid Reactive Lymphs 0 % 12/08/17 Unknown Fluid Monocytes 62.0 % 12/08/17 Unknown Fluid Eosinophils 5.0 % 12/08/17 Unknown Fluid Basophils 0 % 12/08/17 Unknown Fluid Comment Diff performed 12/08/17 Unknown
--- NOTE | 2017-12-09 09:26 | Progress Note ---
Assessment and Plan 87 yo F with Left sided pneumothorax s/p thoracentesis Status post left chest tube placement 12/08/17 Plan: 1. CXR and CT chest reviewed - continue Chest tube -[id number] suction 2. repeat CXR in am - if no PTX will place chest tube to water seal. 3. pulm toilet/incentive spirometry 4. wean o2 5. prn PO pain control 6. pulm consult pending Thank you for this consultation, please call with questions or concerns. Subjective Date of service: 12/09/17 Narrative: Patient seen and examined at bedside. She complains of mild pain at the chest tube site. No fevers, chills, chest pain. Shortness of breath has improved. Objective Vital Signs - 12hr 12/08/17 12/09/17 12/09/17 22:00 02:22 07:24 Temperature 97.6 F 97.7 F Pulse Rate 83 84 76 Respiratory 20 19 Rate Blood Pressure 114/60 124/57 O2 Sat by Pulse 87 96 Oximetry - General physical appearance Narrative Exam: Gen.: Awake, alert, oriented 3. CV: S1, S2 present Respiratory: Clear to auscultation bilaterally, no wheezes, rales, rhonchi. Left chest tube in place, on suction, with serous pleural fluid and tubing and canister. There is a mild forced expiratory air leak which resolved after several coughs. There is good respiratory variation and tidling in the tubing. Chest tube dressing is clean, dry, intact. Extremities: No clubbing, cyanosis, edema - Labs 12/07/17 14:35 12/07/17 14:35 Thyroid panel 12/08/17 12/08/17 Range/Units 15:28 15:28 TSH 1.380 (0.270-4.200) mlU/mL Thyroxine (T4) 8.9 (4.0-12.0) ug/dL Pituitary panel 12/08/17 12/08/17 Range/Units 15:28 15:28 TSH 1.380 (0.270-4.200) mlU/mL Thyroxine (T4) 8.9 (4.0-12.0) ug/dL
[2017-12-09] MEDS ORDERED: SYNTHROID PO SCH (10:00)
[2017-12-09] MEDS: LEVAQUIN PO SCH (11:15)
[2017-12-09] MEDS: ZESTRIL PO SCH (11:15)
[2017-12-09] MEDS: SODIUM CHLORIDE FLUSH SYRINGE 10 ML IV SCH ×2 (11:15→22:06)
--- NOTE | 2017-12-09 11:31 | Cat Scan Report ---
CT CHEST WITH CONTRAST INDICATION: Pleural effusion, of uncertain etiology. COMPARISON: 12/07/[address] FINDINGS: Chest CT performed following intravenous administration of 100 cc of Omnipaque 300. Significant interval evacuation of left pleural effusion with small now residual fluid at the base following a small bore left chest catheter placement with its tip directed caudad and adjacent to the left hemidiaphragm. Left pneumothorax also noted, minimal toward the apex with greatest components anteriorly and towards the base with maximum separation of approximately 6.2 cm on axial image 104, series 2, amongst others. Dense consolidation/collapse of at least part of the left lower lobe noted on axial images 80-104 with approximately 5.6 x 4.5 cm dense masslike appearance as on axial image 91 nonspecific and difficult to exclude for an underlying neoplasm at this time. Additional opacity/densities in the remainder left lung also noted as somewhat linear, 5.5 x 1.5 cm in the left upper lobe, axial image 58. Right basilar atelectasis and minimal fluid is new. Mild scarring or atelectasis as in the right upper lobe inferomedially and also possibly chronic in the medial aspect of the right middle lobe on axial images 65-96 with slight bronchiectasis developing. Subtle diffuse right lung interstitial nodularity also noted with numerous small, subcentimeter nodules as measuring 5 mm in the right upper lobe, axial image 49, amongst others, suspected metastatic. Top normal heart size with silhouette slightly exaggerated due to pericardial fat pad. An approximately 1 cm AP window lymph node, axial image 54. No size significant axillary lymphadenopathy. No aortic aneurysm or dissection. Few atherosclerotic changes. Well opacified main and right and left pulmonary artery branches. However, right upper and lower lobe pulmonary arterial filling defects noted as on axial images 58, 85 and 95, amongst others. Poor opacification/smaller caliber of left lower lobe pulmonary arterial branches leading to the above described consolidative/masslike appearance also suspected as on axial images 79-85, series 2, amongst others. No pericardial effusion. A 1.9 cm right thyroid lobe hypodensity on axial image 18. Nonspecific distal esophageal wall prominence/thickening, not excluded for gastroesophageal reflux and/or hiatal hernia, amongst others. Numerous faintly calcified gallstones individually measure to the order of 1 cm. Slight bilateral nonspecific perinephric stranding and numerous bilateral renal cortical hypodensities, some subcentimeter while the largest is approximately 1.3 cm on the right, axial image 145, series 2. Degenerative spurring throughout imaged spine. Possible osteopenia. Approximately 1.5 cm sclerotic lesion in T6 vertebral body on the left posterolaterally, axial image 65, series 2 may also involve the pedicle. CONCLUSION: 1. Pulmonary embolism noted involving the right upper lobe more than the lower lobe branches, as detailed above. Pulmonary embolism also questioned involving the part of the left lower lobe leading to approximately 5-6 cm dense masslike consolidation described above, its exact etiology or chronicity though uncertain at this time with neoplasm not entirely excluded. 2. Multiple other aerated left lung densities/consolidations noted as also fine interstitial nodularity of the right lung with few tiny nodules suspected metastatic. 3. A T6 sclerotic lesion also worrisome for metastasis. 4. Interval left chest tube placement with significant decrease in left pleural fluid. Approximately 35% left pneumothorax now suspected more so anteriorly and inferiorly towards the base. Mild left basilar fluid and right basilar atelectasis also noted. 5. Various other findings as cholelithiasis, bilateral renal hypodensities versus and multilevel spinal degenerative changes, amongst others, as detailed above. I phoned the above results to patient's nurse, Julio Nadya, 11:20 AM, 12/09/2017. Thank you for the opportunity to participate in this patient's care.
[2017-12-09] MEDS ORDERED: HEPARIN 10,000 UNITS/10 ML IV ONE (11:49)
[2017-12-09] MEDS: HEPARIN/ 0.45% NACL-25,000 UNIT/500 ML 25,000 UNIT/500 ML BAG IV SCH (12:24)
[2017-12-09 12:28] LABS: Hematocrit 36.4 % (30.3-42.9)
[2017-12-09 12:40] LABS: Partial Thromboplastin Time 33.7 Sec. (24.2-36.6)
--- NOTE | 2017-12-09 13:06 | Progress Note ---
Assessment and Plan Imp: 1. Large L effusion -> malignant; DDx includes lung primary (the LLL "consolidation" may be a primary mass) versus metastatic from GI/ tract, breast, etc. 2. PTX +/- some component of trapped lung 3. Compressive atelectasis 4. Essential HTN 5. Acute respiratory failure, hypoxia 6. Acute PE in setting of #1 Rec: 1. Levaquin 750mg daily 2. F/u final cytology pending; I did not notify her of the presence of malignancy as there was a "friend" in the room 3. Agree with chest tube to suction 4. Start heparin drip and check LE dopplers 5. Recommend CT a/p and oncology consult Plan of care reviewed with patient, she understands/agrees Subjective Date of service: 12/09/17 Principal diagnosis: SOB Interval history: SOB, cough, sputum better since CT insertion. No new complaints. On 2L NC. Active Medications Acetaminophen (Tylenol) 650 mg PO Q4H PRN PRN Reason: Pain MILD(1-3)/Fever >100.5/MORA Albuterol (Proventil) 2.5 mg IH Q4HRT PRN PRN Reason: Shortness Of Breath Heparin Sodium/Sodium Chloride (Heparin/ 0.45% Nacl-25,000 Unit/500 Ml) 25,000 unit in 500 mls @ 21 mls/hr IV TITR [facility]; Protocol Last Admin: 12/09/17 12:24 Dose: 1,050 units/hr, 21 mls/hr Levofloxacin (Levaquin) 750 mg PO Q24HR [facility] Last Admin: 12/09/17 11:15 Dose: 750 mg Levothyroxine Sodium (Synthroid) 75 mcg PO DAILY@0600 [facility] Last Admin: 12/09/17 06:06 Dose: 75 mcg Lisinopril (Zestril) 10 mg PO QDAY [facility] Last Admin: 12/09/17 11:15 Dose: 10 mg Ondansetron HCl (Zofran) 4 mg IV Q4H PRN PRN Reason: Nausea And Vomiting Oxycodone/Acetaminophen (Percocet 5/325) 1 tab PO Q6H PRN PRN Reason: Pain, Moderate (4-6) Last Admin: 12/09/17 06:24 Dose: 1 tab Sodium Chloride (Sodium Chloride Flush Syringe 10 Ml) 10 ml IV BID [facility] Last Admin: 12/09/17 11:15 Dose: 10 ml Sodium Chloride (Sodium Chloride Flush Syringe 10 Ml) 10 ml IV PRN PRN PRN Reason: LINE FLUSH Objective Vital Signs - 12hr 12/09/17 12/09/17 12/09/17 02:22 07:24 10:00 Temperature 97.6 F 97.7 F Pulse Rate 84 76 76 Respiratory 20 19 Rate Blood Pressure 114/60 124/57 O2 Sat by Pulse 87 96 Oximetry Constitutional: no acute distress, alert Eyes: non-icteric Neck: supple Effort: normal Ascultation: Right: clear, Left: diminished breath sounds Cardiovascular: regular rate and rhythm (no mrg) Gastrointestinal: normoactive bowel sounds, soft, non-tender, non-distended Integumentary: normal Extremities: no cyanosis, no edema Neurologic: normal mental status, non-focal exam, pupils equal and round, CN II- XII normal Psychiatric: mood appropriate, affect normal CBC and BMP: 12/09/17 12:07 12/07/17 14:35 ABG, PT/INR, D-dimer: PT/INR, D-dimer PT 13.7 Sec. (12.2-14.9) 12/09/17 12:07 INR 1.00 (0.87-1.13) 12/09/17 12:07 Abnormal lab findings: Abnormal Labs 12/07/17 12/07/17 14:35 14:35 [place] % (Auto) 10.4 H Creatinine 0.6 L Glucose 107 H Chest x-ray: report reviewed, image reviewed CT scan - chest: report reviewed, image reviewed
--- NOTE | 2017-12-09 13:41 | Event Note ---
Date: 12/09/17 Full note to follow. Probably should get lung biopsy and send for egfr alk and ros1 while inpatient and having a chest tube
[2017-12-10] MEDS: SYNTHROID PO SCH (06:11)
[2017-12-10] MEDS: LEVAQUIN PO SCH (09:59)
[2017-12-10] MEDS: SODIUM CHLORIDE FLUSH SYRINGE 10 ML IV SCH ×2 (10:00→22:21)
[2017-12-10] MEDS: ZESTRIL PO SCH (10:01)
--- NOTE | 2017-12-10 10:29 | Hem/Onc Consultation ---
History of Present Illness - Reason for Consult Consult date: 12/09/17 - History of Present Illness 87 YO Female with no PMH presents to ED for evalution. Pt states that she has experienced a runny nose and a nonproductive cough for the past week as well as shortness of breath with worsening symptoms over the past 3 days. Pt seen and evaluated in ED and found to have acute respiratory failure secondary to a large left pleural effusion. Pt denies fever, chills, unintentional weight loss , night sweats, bone pain, trauma, BRBPR, hemoptysis, or recent ill contacts. Pt resides in her home with her son. Imaging consistent with malignancy. Thoracentesis has bloody fluid. Past History Past Medical History: hypertension, other (hypothyroidism) Past Surgical History: No surgical history, Other (reviewed) Social history: , lives with family. denies: smoking, alcohol abuse, prescription drug abuse Family history: no significant family history (reviewed) Medications and Allergies Allergies Allergy/AdvReac Type Severity Reaction Status Date / Time No Known Allergies Allergy Unverified 12/07/17 14:16 Home Medications Medication Instructions Recorded Confirmed Last Taken Type Levothyroxine [Synthroid] 75 mcg PO QAM 12/07/17 12/07/17 12/06/17 History Lisinopril [Zestril TAB] 10 mg PO QDAY 12/07/17 12/07/17 12/06/17 History Multivitamin [Multiple Vitamins] 1 each PO DAILY 12/07/17 12/07/17 12/06/17 History Active Meds: Active Medications Acetaminophen (Tylenol) 650 mg PO Q4H PRN PRN Reason: Pain MILD(1-3)/Fever >100.5/MORA Albuterol (Proventil) 2.5 mg IH Q4HRT PRN PRN Reason: Shortness Of Breath Heparin Sodium/Sodium Chloride (Heparin/ 0.45% Nacl-25,000 Unit/500 Ml) 25,000 unit in 500 mls @ 21 mls/hr IV TITR [facility]; Protocol Last Admin: 12/09/17 12:24 Dose: 1,050 units/hr, 21 mls/hr Levofloxacin (Levaquin) 750 mg PO Q24HR [facility] Last Admin: 12/10/17 09:59 Dose: 750 mg Levothyroxine Sodium (Synthroid) 75 mcg PO DAILY@0600 [facility] Last Admin: 12/10/17 06:11 Dose: 75 mcg Lisinopril (Zestril) 10 mg PO QDAY [facility] Last Admin: 12/10/17 10:01 Dose: Not Given Ondansetron HCl (Zofran) 4 mg IV Q4H PRN PRN Reason: Nausea And Vomiting Oxycodone/Acetaminophen (Percocet 5/325) 1 tab PO Q6H PRN PRN Reason: Pain, Moderate (4-6) Last Admin: 12/09/17 22:05 Dose: 1 tab Sodium Chloride (Sodium Chloride Flush Syringe 10 Ml) 10 ml IV BID [facility] Last Admin: 12/10/17 10:00 Dose: 10 ml Sodium Chloride (Sodium Chloride Flush Syringe 10 Ml) 10 ml IV PRN PRN PRN Reason: LINE FLUSH Review of Systems All systems: negative (dyspnea cough) Exam - Constitutional Vitals: Last Vital Signs Temp 98.0 F 12/10/17 07:20 Pulse 67 12/10/17 10:01 Resp 20 12/10/17 07:20 BP 101/48 12/10/17 10:01 Pulse Ox 97 12/10/17 07:20 Pain Intensity (0-10): denies any pain General appearance: mild distress Performance status: 1-light work, ambulatory - EENT Eyes: PERRL ENT: hearing intact Lymph node exam: negative cervical - Neck Neck: supple - Respiratory Respiratory effort: Positive: normal Respiratory: bilateral: CTA - Cardiovascular Rhythm: regular Heart Sounds: Present: S1 & S2 - Gastrointestinal General gastrointestinal: Present: soft - Integumentary Integumentary: clear - Musculoskeletal Musculoskeletal: strength equal bilaterally - Neurologic Neurologic: CNII-XII intact - Psychiatric Psychiatric: appropriate mood/affect Results - Labs lab Results: Laboratory Results - last 24 hr 12/09/17 12/09/17 12/09/17 12:07 12:07 18:50 Hgb 12.0 Hct 36.4 Plt Count 240 PT 13.7 INR 1.00 APTT 33.7 Heparin Anti-Xa Level 0.54 12/10/17 01:43 Hgb Hct Plt Count PT INR APTT Heparin Anti-Xa Level 0.36 - Imaging and cardiology CT scan - chest: report reviewed, image reviewed Assessment and Plan - Patient Problems (1) Pleural effusion Current Visit: Yes Status: Acute Plan to address problem: D/w Dr Contreras and dr Jo. Very complicated situation. Unclear if the lung mass is real and can be biopsied. best time to get biopsy is when Chest tube is in place. Will need to hold heparin around time of biopsy. Patient agrees.
--- NOTE | 2017-12-10 12:47 | XRay Report ---
AP CHEST :12/10/17 CLINICAL: Follow-up chest tube. COMPARISON:12/09/17 FINDINGS: The left chest tube has pulled back and the tip is outside of the pleural space in the chest wall external to the ribs. Left hemithorax is otherwise not significantly changed. A small pneumothorax is apparent in the apex of the lung but a larger pneumothorax is apparent in the lower chest. Left lower lobe mass versus consolidation.The right lung is normally expanded and clear. Normal heart and pulmonary vessels. IMPRESSION: Moderate left pneumothorax. The left chest tube has been pulled back and is outside the pleural space.
--- NOTE | 2017-12-10 14:01 | Progress Note ---
Assessment and Plan Imp: 1. Large L effusion -> malignant; likely lung primary 2. PTX +/- some component of trapped lung 3. Compressive atelectasis 4. Essential HTN 5. Acute respiratory failure, hypoxia 6. Acute PE and DVT in setting of #1 Rec: 1. Levaquin 750mg daily for now 2. Possibly needs CT guided biopsy for more tissue early next week per oncology 3. Chest tube followed by surgery; CXR report says moderate PTX but I am not really seeing that; consider removal and monitoring versus re-insertion 4. Cont. heparin drip 5. Pulm-kaplan stable; will monitor closely with you; no family present Plan of care reviewed with patient, she understands/agrees Subjective Date of service: 12/10/17 Principal diagnosis: SOB Interval history: SOB, cough, sputum all stable. No new complaints. On 2L NC. Active Medications Acetaminophen (Tylenol) 650 mg PO Q4H PRN PRN Reason: Pain MILD(1-3)/Fever >100.5/MORA Albuterol (Proventil) 2.5 mg IH Q4HRT PRN PRN Reason: Shortness Of Breath Last Admin: 12/10/17 13:22 Dose: 2.5 mg Heparin Sodium/Sodium Chloride (Heparin/ 0.45% Nacl-25,000 Unit/500 Ml) 25,000 unit in 500 mls @ 21 mls/hr IV TITR [facility]; Protocol Last Admin: 12/09/17 12:24 Dose: 1,050 units/hr, 21 mls/hr Levofloxacin (Levaquin) 750 mg PO Q24HR [facility] Last Admin: 12/10/17 09:59 Dose: 750 mg Levothyroxine Sodium (Synthroid) 75 mcg PO DAILY@0600 [facility] Last Admin: 12/10/17 06:11 Dose: 75 mcg Lisinopril (Zestril) 10 mg PO QDAY [facility] Last Admin: 12/10/17 10:01 Dose: Not Given Ondansetron HCl (Zofran) 4 mg IV Q4H PRN PRN Reason: Nausea And Vomiting Oxycodone/Acetaminophen (Percocet 5/325) 1 tab PO Q6H PRN PRN Reason: Pain, Moderate (4-6) Last Admin: 12/09/17 22:05 Dose: 1 tab Sodium Chloride (Sodium Chloride Flush Syringe 10 Ml) 10 ml IV BID [facility] Last Admin: 12/10/17 10:00 Dose: 10 ml Sodium Chloride (Sodium Chloride Flush Syringe 10 Ml) 10 ml IV PRN PRN PRN Reason: LINE FLUSH Objective Vital Signs - 12hr 12/10/17 12/10/17 12/10/17 02:16 05:28 07:20 Temperature 97.7 F 98.0 F Pulse Rate 71 67 Respiratory 8 L 18 20 Rate Blood Pressure 110/48 101/48 O2 Sat by Pulse 97 97 Oximetry 12/10/17 12/10/17 10:00 10:01 Temperature Pulse Rate 67 Respiratory Rate Blood Pressure 101/48 O2 Sat by Pulse 94 Oximetry Constitutional: no acute distress, alert Eyes: non-icteric Neck: supple Effort: normal Ascultation: Right: clear, Left: diminished breath sounds Cardiovascular: regular rate and rhythm (no mrg) Gastrointestinal: normoactive bowel sounds, soft, non-tender, non-distended Integumentary: normal Extremities: no cyanosis, no edema Neurologic: normal mental status, non-focal exam, pupils equal and round, CN II- XII normal Psychiatric: mood appropriate, affect normal CBC and BMP: 12/09/17 12:07 12/07/17 14:35 ABG, PT/INR, D-dimer: PT/INR, D-dimer PT 13.7 Sec. (12.2-14.9) 12/09/17 12:07 INR 1.00 (0.87-1.13) 12/09/17 12:07 Abnormal lab findings: Abnormal Labs 12/07/17 12/07/17 14:35 14:35 [place] % (Auto) 10.4 H Creatinine 0.6 L Glucose 107 H Chest x-ray: report reviewed, image reviewed (CT outside hemithorax with some subQ emphysema; no significant PTX in my opinion)
[2017-12-10 14:15] LABS: LDH,Body Fluid 315; Total Protein,Body Fluid 4.4 (15.0-45.0)
--- NOTE | 2017-12-10 14:38 | Progress Note ---
Assessment and Plan - Patient Problems (1) Pneumothorax Current Visit: Yes Status: Acute Plan to address problem: Patient's chest tube came out incidentally spoke with surgery about findings and repeat chest x-ray. Agree with leaving the tube out. If necessary may place a pigtail drain doing biopsy. (2) Acute respiratory failure Current Visit: Yes Status: Acute Qualifiers: Respiratory failure complication: hypoxia Qualified Code(s): J96.01 - Acute respiratory failure with hypoxia Plan to address problem: Secondary to malignant pleural effusion (3) DVT prophylaxis Current Visit: Yes Status: Acute (4) Dyspnea Current Visit: Yes Status: Acute (5) Pleural effusion Current Visit: Yes Status: Acute Plan to address problem: Malignant pleural effusion empiric treatment with Levaquin most likely secondary to lung cancer versus metastasis. Biopsy pending. (6) Acute DVT (deep venous thrombosis) Current Visit: Yes Status: Acute Plan to address problem: Acute DVT and pulmonary embolism. Patient remains on heparin drip. (7) Hypothyroidism Current Visit: Yes Status: Acute Plan to address problem: Follow-up TSH. No signs or symptoms of hypo-or hyperthyroidism. History Interval history: Ms. Inocencio Fu appears to be in good spirits. No pain. No new concerns. I did discuss findings of effusion and possibilities of cancer in patient's verbalizes understanding. She is aware of the biopsy and what it will encompass. Hospital course was complicated by chest tube being pulled out. Spoke with surgery and agree since patient is asymptomatic and no acute changes from prior chest x-rays K leave the tube out Hospitalist Physical - Constitutional Vitals: Temp Pulse Resp BP Pulse Ox 98.0 F 67 20 101/48 94 12/10/17 07:20 12/10/17 10:01 12/10/17 07:20 12/10/17 10:01 12/10/17 10:00 General appearance: Present: no acute distress, well-nourished - EENT Eyes: Present: PERRL, EOM intact ENT: hearing intact, clear oral mucosa, dentition normal - Neck Neck: Present: supple, normal ROM - Respiratory Respiratory: right: diminished, rhonchi - Cardiovascular Rhythm: regular Heart Sounds: Present: S1 & S2 - Extremities Extremities: no ischemia, pulses intact, pulses symmetrical Peripheral Pulses: within normal limits - Abdominal General gastrointestinal: soft, non-tender, non-distended, no hypoactive bowel sounds, no absent bowel sounds, no splenomegaly - Integumentary Integumentary: Present: clear, warm, dry - Psychiatric Psychiatric: appropriate mood/affect, intact judgment & insight, cooperative - Neurologic Neurologic: CNII-XII intact, no focal deficits, moves all extremities Results - Labs CBC & Chem 7: 12/09/17 12:07 12/07/17 14:35 Labs: Laboratory Last Values WBC 7.7 K/mm3 (4.5-11.0) 12/07/17 14:35 RBC 3.75 M/mm3 (3.65-5.03) 12/07/17 14:35 Hgb 12.0 gm/dl (10.1-14.3) 12/09/17 12:07 Hct 36.4 % (30.3-42.9) 12/09/17 12:07 MCV 95 fl (79-97) 12/07/17 14:35 MCH 32 pg (28-32) 12/07/17 14:35 MCHC 33 % (30-34) 12/07/17 14:35 RDW 14.4 % (13.2-15.2) 12/07/17 14:35 Plt Count 240 K/mm3 (140-440) 12/09/17 12:07 Lymph % (Auto) 21.6 % (13.4-35.0) 12/07/17 14:35 [place] % (Auto) 10.4 % (0.0-7.3) H 12/07/17 14:35 Eos % (Auto) 1.4 % (0.0-4.3) 12/07/17 14:35 Baso % (Auto) 1.0 % (0.0-1.8) 12/07/17 14:35 Lymph # 1.7 K/mm3 (1.2-5.4) 12/07/17 14:35 [place] # 0.8 K/mm3 (0.0-0.8) 12/07/17 14:35 Eos # 0.1 K/mm3 (0.0-0.4) 12/07/17 14:35 Baso # 0.1 K/mm3 (0.0-0.1) 12/07/17 14:35 Seg Neutrophils % 65.6 % (40.0-70.0) 12/07/17 14:35 Seg Neutrophils # 5.1 K/mm3 (1.8-7.7) 12/07/17 14:35 PT 13.7 Sec. (12.2-14.9) 12/09/17 12:07 INR 1.00 (0.87-1.13) 12/09/17 12:07 APTT 33.7 Sec. (24.2-36.6) 12/09/17 12:07 Heparin Anti-Xa Level 0.36 U.I./ml (0.3-0.7) 12/10/17 01:43 Sodium 137 mmol/L (137-145) 12/07/17 14:35 Potassium 4.1 mmol/L (3.6-5.0) 12/07/17 14:35 Chloride 101.3 mmol/L (98-107) 12/07/17 14:35 Carbon Dioxide 26 mmol/L (22-30) 12/07/17 14:35 Anion Gap 14 mmol/L 12/07/17 14:35 BUN 16 mg/dL (7-17) 12/07/17 14:35 Creatinine 0.6 mg/dL (0.7-1.2) L 12/07/17 14:35 Estimated GFR > 60 ml/min 12/07/17 14:35 BUN/Creatinine Ratio 27 % 12/07/17 14:35 Glucose 107 mg/dL (65-100) H 12/07/17 14:35 Calcium 9.2 mg/dL (8.4-10.2) 12/07/17 14:35 Troponin T < 0.010 ng/mL (0.00-0.029) 12/07/17 15:33 NT-Pro-B Natriuret Pep 48.51 pg/mL (0-900) 12/07/17 15:33 TSH 1.380 mlU/mL (0.270-4.200) 12/08/17 15:28 Thyroxine (T4) 8.9 ug/dL (4.0-12.0) 12/08/17 15:28 Fluid Type Pleural 12/08/17 Unknown Fluid Color Yellow 12/08/17 Unknown Fluid Appearance Clear 12/08/17 Unknown Fluid pH 7.467 12/08/17 Unknown Fluid WBC 120 /mm3 12/08/17 Unknown Fluid RBC 117 /mm3 12/08/17 Unknown Fluid Seg Neutrophils 3.0 % 12/08/17 Unknown Fluid Lymphocytes 30.0 % 12/08/17 Unknown Fluid Reactive Lymphs 0 % 12/08/17 Unknown Fluid Monocytes 62.0 % 12/08/17 Unknown Fluid Eosinophils 5.0 % 12/08/17 Unknown Fluid Basophils 0 % 12/08/17 Unknown Fluid Glucose 115 mg/dL (40-70) H 12/08/17 Unknown Fluid Total Protein 4.4 (15.0-45.0) L 12/08/17 Unknown Fluid LDH 315 12/08/17 Unknown Fluid Comment Diff performed 12/08/17 Unknown - Imaging and Cardiology Chest x-ray: image reviewed CT scan - chest: image reviewed
[2017-12-10] MEDS: HEPARIN/ 0.45% NACL-25,000 UNIT/500 ML 25,000 UNIT/500 ML BAG IV SCH (14:43)
--- NOTE | 2017-12-10 15:09 | Progress Note ---
Assessment and Plan - Patient Problems (1) Pneumothorax Current Visit: Yes Status: Acute Plan to address problem: Patient stable. Unfortunately, the chest tube has gotten pulled out at some point since yesterday. Fortunately, the pneumothorax between today's chest x- ray and CT scan from yesterday appear to be about the same and the patient is asymptomatic. I would recommend that a new chest tube be placed at the same time the lung biopsies done on Tuesday. If the patient becomes symptomatic, then I will place a new chest tube before Tuesday. I've discussed this plan with Dr. Armstrong. He is an agreement. Patient is also in agreement with this plan. Time=20min Subjective Date of service: 12/10/17 Patient Reports: Positive: no new complaints. Negative: shortness of breath ( reports that her breathing is almost back to normal except for a cough and mild chest congestion. The shortness of breath that she had when she presented is gone.) Objective Vital Signs - 12hr 12/10/17 12/10/17 12/10/17 05:28 07:20 10:00 Temperature 98.0 F Pulse Rate 67 Pulse Rate [ Anterior Bilateral Throughout] Respiratory 18 20 Rate Respiratory Rate [Anterior Bilateral Throughout] Blood Pressure 101/48 O2 Sat by Pulse 97 94 Oximetry 12/10/17 12/10/17 12/10/17 10:01 13:22 13:32 Temperature Pulse Rate 67 Pulse Rate [ 78 74 Anterior Bilateral Throughout] Respiratory Rate Respiratory 20 20 Rate [Anterior Bilateral Throughout] Blood Pressure 101/48 O2 Sat by Pulse Oximetry 12/10/17 13:53 Temperature 97.9 F Pulse Rate 77 Pulse Rate [ Anterior Bilateral Throughout] Respiratory 20 Rate Respiratory Rate [Anterior Bilateral Throughout] Blood Pressure 123/57 O2 Sat by Pulse 94 Oximetry - General physical appearance no distress, no pain - Respiratory other (decreased breath sounds on the left. Chest tube is on tension. Chest tube was removed. It was only a few centimeters in. Patient tolerated the procedure well.) - Psychiatric oriented to time, oriented to person, oriented to place, speech is normal, memory intact - Labs 12/09/17 12:07 12/07/17 14:35 - Imaging Chest x-ray: report reviewed, image reviewed
--- NOTE | 2017-12-10 22:10 | Hem/Onc Progress Note ---
Assessment and Plan - Patient Problems (1) Pleural effusion Current Visit: Yes Status: Acute Plan to address problem: Await cytology. Will plan for CT biopsy on tuesday. Also CT abdomen pelvis and MRI brain to complete staging. Subjective Date of service: 12/10/17 Interval history: Patient feels well. No new complains. Objective - Constitutional Vitals: Last Vital Signs Temp 97.9 F 12/10/17 13:53 Pulse 77 12/10/17 13:53 Resp 20 12/10/17 13:53 BP 123/57 12/10/17 13:53 Pulse Ox 94 12/10/17 19:24 Pain Intensity (0-10): 2/10 General appearance: no acute distress Performance status: 1-light work, ambulatory - EENT Eyes: PERRL ENT: hearing intact Lymph node exam: negative cervical - Neck Neck: supple - Respiratory Respiratory effort: Positive: normal Respiratory: bilateral: CTA - Cardiovascular Rhythm: regular Heart Sounds: Present: S1 & S2 - Gastrointestinal General gastrointestinal: Present: soft - Integumentary Integumentary: clear - Musculoskeletal Musculoskeletal: strength equal bilaterally - Neurologic Neurologic: CNII-XII intact - Labs Lab Results: Laboratory Results - last 24 hr 12/08/17 12/10/17 Unknown 01:43 Heparin Anti-Xa Level 0.36 Fluid Glucose 115 H Fluid Total Protein 4.4 L Fluid LDH 315
[2017-12-11 05:10] LABS: Hematocrit 36.5 % (30.3-42.9); Hemoglobin 12.5 gm/dl (10.1-14.3)
[2017-12-11] MEDS: SYNTHROID PO SCH (05:10)
[2017-12-11] MEDS ORDERED: NACL ONE (08:37)
--- NOTE | 2017-12-11 09:13 | Cat Scan Report ---
FINAL REPORT EXAM: CT ABDOMEN PELVIS W CON HISTORY: suspected metastatic, history of brain mets TECHNIQUE: CT abdomen and pelvis performed. Images extend from diaphragm to pubic symphysis. 100 cc Omnipaque 300 IV was administered. Coronal and sagittal reformatted images were obtained. PRIORS: None. FINDINGS: There is an incompletely visualized left pneumothorax which is probably at least moderate in size. There is airspace disease in the visualized left lower lobe. There is a small left pleural effusion. There are few scattered pancreatic calcifications which likely reflect prior episodes of pancreatitis. There is currently no evidence of acute pancreatitis. There is a small low-attenuation lesion in the pancreatic body which may be a small cystic mass. It measures 8 mm. There is cholelithiasis. There is a questionable mass in the distal gastric antrum. Consider endoscopy. There are multiple small renal cysts. There are aortoiliac atherosclerotic calcifications. There is no abdominal aortic aneurysm. There is no evidence of intestinal obstruction. There is prominent stool throughout the colon. Correlate for constipation. The appendix is normal. There is a cystic area in the left adnexa measuring 2.6 x 1.5 x 2.0 cm. There is endometrial prominence with endometrial calcification. This is nonspecific. The bladder is unremarkable. IMPRESSION: Incompletely visualized pneumothorax seen in visualized lower left sid thorax. This is at least moderate sized. Left lower lobe airspace disease and small left pleural effusion. Cholelithiasis. Possible mass in the gastric antrum. Consider endoscopy. Prominent endometrium for age with calcification. Endometrial lesion/mass not excluded. Nonspecific small cystic lesion left adnexa measures 2.6 x 1.5 x 2.0 cm. Small cystic lesion in the pancreatic body suspected. This measures about 8 mm.
--- NOTE | 2017-12-11 10:14 | XRay Report ---
AP CHEST :12/11/17 CLINICAL: Followup left pneumothorax. COMPARISON:None. FINDINGS: A left pneumothorax is apparent in the medial left upper hemithorax and in the lateral lower left hemithorax and is unchanged in size.Opacification of the left lung base which is suspicious for mass or pulmonary consolidation. The left costophrenic angle is blunted and there is silhouetting of the left hemidiaphragm and left heart border. The right lung is normally expanded and clear. Normal heart and pulmonary vessels. No tubes or lines. The left chest tube has been removed. IMPRESSION: Moderate left pneumothorax without change.Left lower lobe mass versus consolidation.
[2017-12-11] MEDS: LEVAQUIN PO SCH (10:30)
[2017-12-11] MEDS: ZESTRIL PO SCH ×2 (10:30→10:32)
[2017-12-11] MEDS: SODIUM CHLORIDE FLUSH SYRINGE 10 ML IV SCH ×2 (10:31→23:11)
--- NOTE | 2017-12-11 13:35 | Progress Note ---
Assessment and Plan - Patient Problems (1) Pneumothorax Current Visit: Yes Status: Acute Plan to address problem: Patient with pneumothorax to receive chest to with lung biopsy. Pneumothorax was unchanged from yesterday. (2) Acute respiratory failure Current Visit: Yes Status: Acute Qualifiers: Respiratory failure complication: hypoxia Qualified Code(s): J96.01 - Acute respiratory failure with hypoxia Plan to address problem: Secondary to malignant pleural effusion patient has biopsy scheduled tomorrow. CT scan abdomen and pelvis completed showed previous pneumothorax cholelithiasis endometrial thickening and possible mass in the antrum of the stomach. (3) DVT prophylaxis Current Visit: Yes Status: Acute (4) Dyspnea Current Visit: Yes Status: Acute (5) Pleural effusion Current Visit: Yes Status: Acute Plan to address problem: Malignant pleural effusion empiric treatment with Levaquin most likely secondary to lung cancer versus metastasis. Biopsy pending. (6) Acute DVT (deep venous thrombosis) Current Visit: Yes Status: Acute Plan to address problem: Patient to receive biopsy will discontinue heparin at 4 AM an time for biopsy tomorrow. (7) Hypothyroidism Current Visit: Yes Status: Acute Plan to address problem: Follow-up TSH. No signs or symptoms of hypo-or hyperthyroidism. History Interval history: Agent today is comfortable no acute pain I did discuss CT abdomen findings with patient. She understands. Awaiting CT scan of biopsy tomorrow. Hospitalist Physical - Constitutional Vitals: Temp Pulse Resp BP Pulse Ox 98.3 F 88 18 124/64 90 12/11/17 08:06 12/11/17 10:32 12/11/17 08:06 12/11/17 10:32 12/11/17 08:06 General appearance: Present: no acute distress, well-nourished - EENT Eyes: Present: PERRL, EOM intact ENT: hearing intact, clear oral mucosa, dentition normal - Neck Neck: Present: supple, normal ROM - Respiratory Respiratory: right: diminished - Cardiovascular Rhythm: regular - Extremities Extremities: no ischemia, pulses intact, pulses symmetrical, No edema, normal temperature, normal color, Full ROM Peripheral Pulses: within normal limits - Abdominal General gastrointestinal: soft, non-tender, non-distended - Psychiatric Psychiatric: appropriate mood/affect, intact judgment & insight, memory intact, cooperative - Neurologic Neurologic: CNII-XII intact, moves all extremities Results - Labs CBC & Chem 7: 12/11/17 04:46 12/07/17 14:35 Labs: Laboratory Last Values WBC 7.7 K/mm3 (4.5-11.0) 12/07/17 14:35 RBC 3.75 M/mm3 (3.65-5.03) 12/07/17 14:35 Hgb 12.5 gm/dl (10.1-14.3) 12/11/17 04:46 Hct 36.5 % (30.3-42.9) 12/11/17 04:46 MCV 95 fl (79-97) 12/07/17 14:35 MCH 32 pg (28-32) 12/07/17 14:35 MCHC 33 % (30-34) 12/07/17 14:35 RDW 14.4 % (13.2-15.2) 12/07/17 14:35 Plt Count 229 K/mm3 (140-440) 12/11/17 04:46 Lymph % (Auto) 21.6 % (13.4-35.0) 12/07/17 14:35 [place] % (Auto) 10.4 % (0.0-7.3) H 12/07/17 14:35 Eos % (Auto) 1.4 % (0.0-4.3) 12/07/17 14:35 Baso % (Auto) 1.0 % (0.0-1.8) 12/07/17 14:35 Lymph # 1.7 K/mm3 (1.2-5.4) 12/07/17 14:35 [place] # 0.8 K/mm3 (0.0-0.8) 12/07/17 14:35 Eos # 0.1 K/mm3 (0.0-0.4) 12/07/17 14:35 Baso # 0.1 K/mm3 (0.0-0.1) 12/07/17 14:35 Seg Neutrophils % 65.6 % (40.0-70.0) 12/07/17 14:35 Seg Neutrophils # 5.1 K/mm3 (1.8-7.7) 12/07/17 14:35 PT 13.7 Sec. (12.2-14.9) 12/09/17 12:07 INR 1.00 (0.87-1.13) 12/09/17 12:07 APTT 33.7 Sec. (24.2-36.6) 12/09/17 12:07 Heparin Anti-Xa Level 0.37 U.I./ml (0.3-0.7) 12/11/17 01:52 Sodium 137 mmol/L (137-145) 12/07/17 14:35 Potassium 4.1 mmol/L (3.6-5.0) 12/07/17 14:35 Chloride 101.3 mmol/L (98-107) 12/07/17 14:35 Carbon Dioxide 26 mmol/L (22-30) 12/07/17 14:35 Anion Gap 14 mmol/L 12/07/17 14:35 BUN 16 mg/dL (7-17) 12/07/17 14:35 Creatinine 0.6 mg/dL (0.7-1.2) L 12/07/17 14:35 Estimated GFR > 60 ml/min 12/07/17 14:35 BUN/Creatinine Ratio 27 % 12/07/17 14:35 Glucose 107 mg/dL (65-100) H 12/07/17 14:35 Calcium 9.2 mg/dL (8.4-10.2) 12/07/17 14:35 Troponin T < 0.010 ng/mL (0.00-0.029) 12/07/17 15:33 NT-Pro-B Natriuret Pep 48.51 pg/mL (0-900) 12/07/17 15:33 TSH 1.380 mlU/mL (0.270-4.200) 12/08/17 15:28 Thyroxine (T4) 8.9 ug/dL (4.0-12.0) 12/08/17 15:28 Fluid Type Pleural 12/08/17 Unknown Fluid Color Yellow 12/08/17 Unknown Fluid Appearance Clear 12/08/17 Unknown Fluid pH 7.467 12/08/17 Unknown Fluid WBC 120 /mm3 12/08/17 Unknown Fluid RBC 117 /mm3 12/08/17 Unknown Fluid Seg Neutrophils 3.0 % 12/08/17 Unknown Fluid Lymphocytes 30.0 % 12/08/17 Unknown Fluid Reactive Lymphs 0 % 12/08/17 Unknown Fluid Monocytes 62.0 % 12/08/17 Unknown Fluid Eosinophils 5.0 % 12/08/17 Unknown Fluid Basophils 0 % 12/08/17 Unknown Fluid Glucose 115 mg/dL (40-70) H 12/08/17 Unknown Fluid Total Protein 4.4 (15.0-45.0) L 12/08/17 Unknown Fluid LDH 315 12/08/17 Unknown Fluid Comment Diff performed 12/08/17 Unknown
--- NOTE | 2017-12-11 14:30 | Progress Note ---
Assessment and Plan - Patient Problems (1) Pneumothorax Current Visit: Yes Status: Acute Plan to address problem: Patient stable. Unfortunately, the chest tube has gotten pulled out at some point on Tuesday night. Fortunately, the pneumothorax between today's chest x- ray and the CXR yesterday appear to be about the same and the patient is asymptomatic. I would recommend that a new chest tube be placed at the same time the lung biopsies done on Tuesday. Consult order has been placed. If the patient becomes symptomatic, then I will place a new chest tube before Tuesday. I've discussed this plan with Dr. Armstrong. He is an agreement. Patient is also in agreement with this plan. Time=10min Subjective Date of service: 12/11/17 Patient Reports: Positive: no new complaints. Negative: shortness of breath ( no breathing difficulties) Objective Vital Signs - 12hr 12/11/17 12/11/17 12/11/17 02:55 02:58 08:06 Temperature 98.0 F 98.3 F Pulse Rate 77 79 Pulse Rate [ From Monitor] Respiratory 20 18 Rate Blood Pressure 134/61 122/58 O2 Sat by Pulse 94 90 Oximetry 12/11/17 12/11/17 10:00 10:32 Temperature Pulse Rate 72 88 Pulse Rate [ 72 From Monitor] Respiratory Rate Blood Pressure 124/64 O2 Sat by Pulse Oximetry - General physical appearance no distress, no pain, other (no O2 today. Breathing very comfortable. ) - Respiratory normal expansion, normal respiratory effort, other (mild decreased BS on left) - Integumentary no rash - Psychiatric oriented to time, oriented to person, oriented to place, speech is normal, memory intact - Labs 12/11/17 04:46 12/07/17 14:35
[2017-12-11] MEDS: HEPARIN/ 0.45% NACL-25,000 UNIT/500 ML 25,000 UNIT/500 ML BAG IV SCH (15:46)
--- NOTE | 2017-12-11 15:57 | Progress Note ---
Assessment and Plan Imp: 1. Large L effusion -> malignant; likely lung primary 2. PTX +/- some component of trapped lung 3. Compressive atelectasis 4. Essential HTN 5. Acute respiratory failure, hypoxia 6. Acute PE and DVT in setting of #1 Rec: 1. Levaquin 750mg daily for now 2. Cont. heparin drip 3. Place on 100% NRB which may resorb the PTX quicker; surgery following as likely needs another chest tube, planned for AM unless any clinical changes ( patient appears stable) 4. CT a/p results as per oncology 5. Pulm-kaplan stable; will monitor closely with you; no family present Plan of care reviewed with patient, she understands/agrees Subjective Date of service: 12/11/17 Principal diagnosis: SOB Interval history: Tube out. On RA. SOB stable. Has cough, congestion, post-nasal drip. Has mild sharp chest pain L back region. Active Medications Acetaminophen (Tylenol) 650 mg PO Q4H PRN PRN Reason: Pain MILD(1-3)/Fever >100.5/MORA Albuterol (Proventil) 2.5 mg IH Q4HRT PRN PRN Reason: Shortness Of Breath Last Admin: 12/10/17 13:22 Dose: 2.5 mg Heparin Sodium/Sodium Chloride (Heparin/ 0.45% Nacl-25,000 Unit/500 Ml) 25,000 unit in 500 mls @ 21 mls/hr IV TITR [facility]; Protocol Last Admin: 12/11/17 15:46 Dose: 1,050 units/hr, 21 mls/hr Levofloxacin (Levaquin) 750 mg PO Q24HR [facility] Last Admin: 12/11/17 10:30 Dose: 750 mg Levothyroxine Sodium (Synthroid) 75 mcg PO DAILY@0600 [facility] Last Admin: 12/11/17 05:10 Dose: 75 mcg Lisinopril (Zestril) 10 mg PO QDAY [facility] Last Admin: 12/11/17 10:32 Dose: Not Given Ondansetron HCl (Zofran) 4 mg IV Q4H PRN PRN Reason: Nausea And Vomiting Oxycodone/Acetaminophen (Percocet 5/325) 1 tab PO Q6H PRN PRN Reason: Pain, Moderate (4-6) Last Admin: 04/20/18 22:05 Dose: 1 tab Sodium Chloride (Sodium Chloride Flush Syringe 10 Ml) 10 ml IV BID TOMY Last Admin: 12/11/17 10:31 Dose: 10 ml Sodium Chloride (Sodium Chloride Flush Syringe 10 Ml) 10 ml IV PRN PRN PRN Reason: LINE FLUSH Objective Vital Signs - 12hr 12/11/17 12/11/17 12/11/17 08:06 10:00 10:25 Temperature 98.3 F Pulse Rate 79 72 Pulse Rate [ 72 From Monitor] Respiratory 18 Rate Blood Pressure 122/58 124/64 O2 Sat by Pulse 90 Oximetry 12/11/17 12/11/17 10:32 13:18 Temperature 98.0 F Pulse Rate 88 79 Pulse Rate [ From Monitor] Respiratory 18 Rate Blood Pressure 124/64 102/51 O2 Sat by Pulse 95 Oximetry Constitutional: no acute distress, alert Eyes: non-icteric Neck: supple Effort: normal Ascultation: Right: clear, Left: diminished breath sounds Cardiovascular: regular rate and rhythm (no mrg) Gastrointestinal: normoactive bowel sounds, soft, non-tender, non-distended Integumentary: normal Extremities: no cyanosis, no edema Neurologic: normal mental status, non-focal exam, pupils equal and round, CN II- XII normal Psychiatric: mood appropriate, affect normal CBC and BMP: 12/11/17 04:46 12/07/17 14:35 ABG, PT/INR, D-dimer: PT/INR, D-dimer PT 13.7 Sec. (12.2-14.9) 12/09/17 12:07 INR 1.00 (0.87-1.13) 12/09/17 12:07 Abnormal lab findings: Abnormal Labs 12/07/17 12/07/17 12/08/17 14:35 14:35 Unknown [place] % (Auto) 10.4 H Creatinine 0.6 L Glucose 107 H Fluid Glucose 115 H Fluid Total Protein 4.4 L Chest x-ray: report reviewed, image reviewed (moderate PTX)
[2017-12-11 19:57] LABS: INR 0.92 (0.87-1.13)
[2017-12-11 20:05] LABS: Partial Thromboplastin Time 86.6 Sec. (24.2-36.6)
[2017-12-12] MEDS: SYNTHROID PO SCH (05:11)
[2017-12-12] MEDS: SODIUM CHLORIDE FLUSH SYRINGE 10 ML IV SCH ×2 (09:10→22:24)
--- NOTE | 2017-12-12 09:13 | Progress Note ---
Assessment and Plan Assessment and plan: 87 YO Female with no PMH presents to ED for evaluation. Pt states that she has experienced a runny nose and a nonproductive cough for the past week as well as shortness of breath with worsening symptoms over the past 3 days. Pt seen and evaluated in ED and found to have acute respiratory failure secondary to a large left pleural effusion. Pt denies fever, chills, unintentional weight loss , night sweats, bone pain, trauma, BRBPR, hemoptysis, or recent ill contacts. Pt resides in her home with her son. She proceeded to have a thoracentensis and subsequently Was noted to have Pneumothorax with chest tube placed. 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 Oncology following. (2)Pneumothorax Current Visit: Yes Status: Acute Plan to address problem: Patient with pneumothorax to receive chest to with lung biopsy. Pneumothorax was unchanged from yesterday. (3) Acute respiratory failure Secondary to Malignant pulmonary effusion and compressive atelectasis Current Visit: Yes Status: Acute Qualifiers: Respiratory failure complication: hypoxia Qualified Code(s): J96.01 - Acute respiratory failure with hypoxia Plan to address problem: Secondary to malignant pleural effusion patient has biopsy scheduled tomorrow. CT scan abdomen and pelvis completed showed previous pneumothorax cholelithiasis endometrial thickening and possible mass in the antrum of the stomach. (4) Hypothyroidism Current Visit: Yes Status: Acute Plan to address problem: Follow-up TSH. No signs or symptoms of hypo-or hyperthyroidism. (5) Malignant Pleural effusion Current Visit: Yes Status: Acute Plan to address problem: Malignant pleural effusion empiric treatment with Levaquin most likely secondary to lung cancer versus metastasis. Biopsy pending. (6) Acute DVT (deep venous thrombosis) AND Pulmonary Embolisim Current Visit: Yes Status: Acute Plan to address problem: Patient to receive biopsy will discontinue heparin at 4 AM an time for biopsy tomorrow. (7)Antrum Mass GI consulted for possible EGD (8)DVT prophylaxis Current Visit: Yes Status: Acute History Interval history: Patient seen and examined this morning still with mild discomfort from chest tube site. Denies chest pain nausea vomiting or diarrhea. Denies shortness of breath at this time. Hospitalist Physical - Physical exam Narrative exam: VITAL SIGNS: Reviewed. GENERAL: The patient appeared well nourished and normally developed. Vital signs as documented. HEAD: No signs of head trauma. EYES: Pupils are equal. Extraocular motions intact. EARS: Hearing grossly intact. MOUTH: Oropharynx is normal. NECK: No adenopathy, no JVD. CHEST: Chest with Left lobar breath sounds diminished. Chest tube. CARDIAC: Regular rate and rhythm. S1 and S2, without murmurs, gallops, or rubs. VASCULAR: No Edema. Peripheral pulses normal and equal in all extremities. ABDOMEN: Soft, without detectable tenderness. No sign of distention. No rebound or guarding, and no masses palpated. Bowel Sounds normal. MUSCULOSKELETAL: Good range of motion of all major joints. Extremities without clubbing, cyanosis or edema. NEUROLOGIC EXAM: Alert and oriented x 3. No focal sensory or strength deficits. Speech normal. Follows commands. PSYCHIATRIC: Mood normal. SKIN: No rash or lesions. - Constitutional Vitals: Temp Pulse Resp BP Pulse Ox 98.2 F 86 20 138/75 91 12/12/17 07:51 12/12/17 08:49 12/12/17 08:49 12/12/17 07:51 12/12/17 07:51 General appearance: Present: no acute distress, well-nourished Results - Labs CBC & Chem 7: 12/11/17 19:15 12/07/17 14:35 Labs: Laboratory Last Values WBC 7.7 K/mm3 (4.5-11.0) 12/07/17 14:35 RBC 3.75 M/mm3 (3.65-5.03) 12/07/17 14:35 Hgb 12.5 gm/dl (10.1-14.3) 12/11/17 04:46 Hct 36.5 % (30.3-42.9) 12/11/17 04:46 MCV 95 fl (79-97) 12/07/17 14:35 MCH 32 pg (28-32) 12/07/17 14:35 MCHC 33 % (30-34) 12/07/17 14:35 RDW 14.4 % (13.2-15.2) 12/07/17 14:35 Plt Count 253 K/mm3 (140-440) 12/11/17 19:15 Lymph % (Auto) 21.6 % (13.4-35.0) 12/07/17 14:35 [place] % (Auto) 10.4 % (0.0-7.3) H 12/07/17 14:35 Eos % (Auto) 1.4 % (0.0-4.3) 12/07/17 14:35 Baso % (Auto) 1.0 % (0.0-1.8) 12/07/17 14:35 Lymph # 1.7 K/mm3 (1.2-5.4) 12/07/17 14:35 [place] # 0.8 K/mm3 (0.0-0.8) 12/07/17 14:35 Eos # 0.1 K/mm3 (0.0-0.4) 12/07/17 14:35 Baso # 0.1 K/mm3 (0.0-0.1) 12/07/17 14:35 Seg Neutrophils % 65.6 % (40.0-70.0) 12/07/17 14:35 Seg Neutrophils # 5.1 K/mm3 (1.8-7.7) 12/07/17 14:35 PT 12.8 Sec. (12.2-14.9) 12/11/17 19:15 INR 0.92 (0.87-1.13) 12/11/17 19:15 APTT 86.6 Sec. (24.2-36.6) H* 12/11/17 19:15 Heparin Anti-Xa Level 0.33 U.I./ml (0.3-0.7) 12/12/17 01:21 Sodium 137 mmol/L (137-145) 12/07/17 14:35 Potassium 4.1 mmol/L (3.6-5.0) 12/07/17 14:35 Chloride 101.3 mmol/L (98-107) 12/07/17 14:35 Carbon Dioxide 26 mmol/L (22-30) 12/07/17 14:35 Anion Gap 14 mmol/L 12/07/17 14:35 BUN 16 mg/dL (7-17) 12/07/17 14:35 Creatinine 0.6 mg/dL (0.7-1.2) L 12/07/17 14:35 Estimated GFR > 60 ml/min 12/07/17 14:35 BUN/Creatinine Ratio 27 % 12/07/17 14:35 Glucose 107 mg/dL (65-100) H 12/07/17 14:35 Calcium 9.2 mg/dL (8.4-10.2) 12/07/17 14:35 Troponin T < 0.010 ng/mL (0.00-0.029) 12/07/17 15:33 NT-Pro-B Natriuret Pep 48.51 pg/mL (0-900) 12/07/17 15:33 TSH 1.380 mlU/mL (0.270-4.200) 12/08/17 15:28 Thyroxine (T4) 8.9 ug/dL (4.0-12.0) 12/08/17 15:28 Fluid Type Pleural 12/08/17 Unknown Fluid Color Yellow 12/08/17 Unknown Fluid Appearance Clear 12/08/17 Unknown Fluid pH 7.467 12/08/17 Unknown Fluid WBC 120 /mm3 12/08/17 Unknown Fluid RBC 117 /mm3 12/08/17 Unknown Fluid Seg Neutrophils 3.0 % 12/08/17 Unknown Fluid Lymphocytes 30.0 % 12/08/17 Unknown Fluid Reactive Lymphs 0 % 12/08/17 Unknown Fluid Monocytes 62.0 % 12/08/17 Unknown Fluid Eosinophils 5.0 % 12/08/17 Unknown Fluid Basophils 0 % 12/08/17 Unknown Fluid Glucose 115 mg/dL (40-70) H 12/08/17 Unknown Fluid Total Protein 4.4 (15.0-45.0) L 12/08/17 Unknown Fluid LDH 315 12/08/17 Unknown Fluid Comment Diff performed 12/08/17 Unknown - Imaging and Cardiology Chest x-ray: image reviewed (PNEUMOTHOARX PERSIST)
[2017-12-12] MEDS: ZESTRIL PO SCH (10:00)
[2017-12-12] MEDS ORDERED: SUBLIMAZE IV ONE (11:37)
[2017-12-12] MEDS ORDERED: VERSED IV ONE (11:37)
--- NOTE | 2017-12-12 14:09 | XRay Report ---
AP CHEST: HISTORY: Left pneumothorax, left lung biopsy A Heimlich chest tube has been placed at the left lung base. There is a small residual left pneumothorax estimated at 15-20%. Small left pleural effusion is also suspected. There are moderate to large areas of atelectasis in the left lower lobe. The right lung remains clear. The heart size is within normal limits. IMPRESSION: Left chest tube placement with small residual left pneumothorax and left pleural effusion.
--- NOTE | 2017-12-12 14:14 | Operative Report ---
Operative Report Operative Report: Procedure: 1. CT-guided core biopsy of a left basilar lung lesion 2. CT-guided left-sided chest tube placement. Date: 12/12/2017 Physician: Simran Rosales M.D. Indication: 87-year-old female with a pneumothorax and left basilar lung lesion in need of biopsy. Technique: The patient was placed in the prone position on the CT table. A marking grid was placed, and a preliminary CT scan was obtained. An appropriate site was marked. The patient was then prepped and draped in the usual sterile fashion. A timeout was performed. Local anesthetic was administered. Under sequential CT guidance, a 17-gauge trocar needle was advanced to the periphery of a left basilar lung lesion. One excellent quality 18-gauge core sample was acquired, and this was deemed sufficient by pathology, who was on site. The trocar needle was then slightly withdrawn, and exchanged over an 035 wire for a tissue dilator. Placement of the wire was confirmed via CT. After serial tissue dilation, the wire was removed through an 8 Setswana pigtail catheter. The pigtail catheter was connected to a Pleur-evac unit. The new catheter was sutured to the skin with 2-0 silk suture. A final image was acquired. Specimen: 18 gauge left lung lesion
--- NOTE | 2017-12-12 14:29 | Progress Note ---
Assessment and Plan 87 yo F with 1. L PTX 2. Lung mass 3. pleural effusion Plan: 1. continue L chest tube to -[id number] suction, will place to water seal in am 2. repeat CXR in am 3. pulm toilet/encourage IS 4. path pending 5. PRN pain control 6. wean O2 Thank you for this consultation, please call with questions or concerns. Subjective Date of service: 12/12/17 Narrative: Patient seen and examined. C/O mild nausea. No CP, SOB. Left chest tube accidentally pulled out on Tuesday evening and patient remained asymptomatic. This afternoon, she underwent CT guided lung bx and a L pigtail catheter was left in place by IR. Objective Vital Signs - 12hr 12/12/17 12/12/17 12/12/17 02:36 07:51 10:00 Temperature 98.2 F Pulse Rate 86 78 Pulse Rate [ 72 86 From Monitor] Pulse Rate [ Intra-Procedure ] Pulse Rate [ Post-Procedure] Pulse Rate [Pre -Procedure] Respiratory 20 20 Rate Respiratory Rate [Intra- Procedure] Respiratory Rate [Post- Procedure] Respiratory Rate [Pre- Procedure] Blood Pressure 138/75 Blood Pressure [Intra- Procedure] Blood Pressure [Post-Procedure ] Blood Pressure [Pre-Procedure] O2 Sat by Pulse 91 Oximetry O2 Sat by Pulse Oximetry [ Intra-Procedure ] O2 Sat by Pulse Oximetry [Post -Procedure] O2 Sat by Pulse Oximetry [Pre- Procedure] 12/12/17 12/12/17 12/12/17 11:58 12:08 12:13 Temperature Pulse Rate Pulse Rate [ From Monitor] Pulse Rate [ 80 81 Intra-Procedure ] Pulse Rate [ Post-Procedure] Pulse Rate [Pre 86 -Procedure] Respiratory Rate Respiratory 16 22 Rate [Intra- Procedure] Respiratory Rate [Post- Procedure] Respiratory 18 Rate [Pre- Procedure] Blood Pressure Blood Pressure 177/84 183/88 [Intra- Procedure] Blood Pressure [Post-Procedure ] Blood Pressure 189/86 [Pre-Procedure] O2 Sat by Pulse Oximetry O2 Sat by Pulse 98 98 Oximetry [ Intra-Procedure ] O2 Sat by Pulse Oximetry [Post -Procedure] O2 Sat by Pulse 95 Oximetry [Pre- Procedure] 12/12/17 12/12/17 12/12/17 12:18 12:23 12:28 Temperature Pulse Rate Pulse Rate [ From Monitor] Pulse Rate [ 82 85 83 Intra-Procedure ] Pulse Rate [ Post-Procedure] Pulse Rate [Pre -Procedure] Respiratory Rate Respiratory 20 22 22 Rate [Intra- Procedure] Respiratory Rate [Post- Procedure] Respiratory Rate [Pre- Procedure] Blood Pressure Blood Pressure 179/81 186/82 185/88 [Intra- Procedure] Blood Pressure [Post-Procedure ] Blood Pressure [Pre-Procedure] O2 Sat by Pulse Oximetry O2 Sat by Pulse 99 98 99 Oximetry [ Intra-Procedure ] O2 Sat by Pulse Oximetry [Post -Procedure] O2 Sat by Pulse Oximetry [Pre- Procedure] 12/12/17 12/12/17 12/12/17 12:30 12:33 12:38 Temperature Pulse Rate Pulse Rate [ From Monitor] Pulse Rate [ 82 88 Intra-Procedure ] Pulse Rate [ Post-Procedure] Pulse Rate [Pre -Procedure] Respiratory 22 Rate Respiratory 25 H 20 Rate [Intra- Procedure] Respiratory Rate [Post- Procedure] Respiratory Rate [Pre- Procedure] Blood Pressure Blood Pressure 169/85 176/88 [Intra- Procedure] Blood Pressure [Post-Procedure ] Blood Pressure [Pre-Procedure] O2 Sat by Pulse Oximetry O2 Sat by Pulse 98 97 Oximetry [ Intra-Procedure ] O2 Sat by Pulse Oximetry [Post -Procedure] O2 Sat by Pulse Oximetry [Pre- Procedure] 12/12/17 12/12/17 12/12/17 12:43 12:45 12:59 Temperature Pulse Rate Pulse Rate [ From Monitor] Pulse Rate [ 83 Intra-Procedure ] Pulse Rate [ 78 Post-Procedure] Pulse Rate [Pre -Procedure] Respiratory 20 Rate Respiratory 20 Rate [Intra- Procedure] Respiratory 22 Rate [Post- Procedure] Respiratory Rate [Pre- Procedure] Blood Pressure Blood Pressure 179/85 [Intra- Procedure] Blood Pressure 148/66 [Post-Procedure ] Blood Pressure [Pre-Procedure] O2 Sat by Pulse Oximetry O2 Sat by Pulse 97 Oximetry [ Intra-Procedure ] O2 Sat by Pulse 97 Oximetry [Post -Procedure] O2 Sat by Pulse Oximetry [Pre- Procedure] - General physical appearance Narrative Exam: Gen: AAOx3. NAD Resp: even and unlabored. L pigtail CT in place with dressing c/d/i. Minimal tidling in tubing. Sero-sang pleural fluid draining. No air leak. - Labs 12/11/17 19:15 12/07/17 14:35
--- NOTE | 2017-12-12 15:23 | Progress Note ---
Assessment and Plan 87 y/o female with lung mas status post biopsy, now with PTX status post chest tube placement. 1. Follow up surgery recs 2. Follow up path report Subjective Date of service: 12/12/17 Principal diagnosis: SOB Interval history: Reviewed surgery note from today. Objective Vital Signs - 12hr 12/12/17 12/12/17 12/12/17 07:51 10:00 11:58 Temperature 98.2 F Pulse Rate 86 78 Pulse Rate [ 86 From Monitor] Pulse Rate [ Intra-Procedure ] Pulse Rate [ Post-Procedure] Pulse Rate [Pre 86 -Procedure] Respiratory 20 20 Rate Respiratory Rate [Intra- Procedure] Respiratory Rate [Post- Procedure] Respiratory 18 Rate [Pre- Procedure] Blood Pressure 138/75 Blood Pressure [Intra- Procedure] Blood Pressure [Post-Procedure ] Blood Pressure 189/86 [Pre-Procedure] O2 Sat by Pulse 91 Oximetry O2 Sat by Pulse Oximetry [ Intra-Procedure ] O2 Sat by Pulse Oximetry [Post -Procedure] O2 Sat by Pulse 95 Oximetry [Pre- Procedure] 12/12/17 12/12/17 12/12/17 12:08 12:13 12:18 Temperature Pulse Rate Pulse Rate [ From Monitor] Pulse Rate [ 80 81 82 Intra-Procedure ] Pulse Rate [ Post-Procedure] Pulse Rate [Pre -Procedure] Respiratory Rate Respiratory 16 22 20 Rate [Intra- Procedure] Respiratory Rate [Post- Procedure] Respiratory Rate [Pre- Procedure] Blood Pressure Blood Pressure 177/84 183/88 179/81 [Intra- Procedure] Blood Pressure [Post-Procedure ] Blood Pressure [Pre-Procedure] O2 Sat by Pulse Oximetry O2 Sat by Pulse 98 98 99 Oximetry [ Intra-Procedure ] O2 Sat by Pulse Oximetry [Post -Procedure] O2 Sat by Pulse Oximetry [Pre- Procedure] 12/12/17 12/12/17 12/12/17 12:23 12:28 12:30 Temperature Pulse Rate Pulse Rate [ From Monitor] Pulse Rate [ 85 83 Intra-Procedure ] Pulse Rate [ Post-Procedure] Pulse Rate [Pre -Procedure] Respiratory 22 Rate Respiratory 22 22 Rate [Intra- Procedure] Respiratory Rate [Post- Procedure] Respiratory Rate [Pre- Procedure] Blood Pressure Blood Pressure 186/82 185/88 [Intra- Procedure] Blood Pressure [Post-Procedure ] Blood Pressure [Pre-Procedure] O2 Sat by Pulse Oximetry O2 Sat by Pulse 98 99 Oximetry [ Intra-Procedure ] O2 Sat by Pulse Oximetry [Post -Procedure] O2 Sat by Pulse Oximetry [Pre- Procedure] 12/12/17 12/12/17 12/12/17 12:33 12:38 12:43 Temperature Pulse Rate Pulse Rate [ From Monitor] Pulse Rate [ 82 88 83 Intra-Procedure ] Pulse Rate [ Post-Procedure] Pulse Rate [Pre -Procedure] Respiratory Rate Respiratory 25 H 20 20 Rate [Intra- Procedure] Respiratory Rate [Post- Procedure] Respiratory Rate [Pre- Procedure] Blood Pressure Blood Pressure 169/85 176/88 179/85 [Intra- Procedure] Blood Pressure [Post-Procedure ] Blood Pressure [Pre-Procedure] O2 Sat by Pulse Oximetry O2 Sat by Pulse 98 97 97 Oximetry [ Intra-Procedure ] O2 Sat by Pulse Oximetry [Post -Procedure] O2 Sat by Pulse Oximetry [Pre- Procedure] 12/12/17 12/12/17 12:45 12:59 Temperature Pulse Rate Pulse Rate [ From Monitor] Pulse Rate [ Intra-Procedure ] Pulse Rate [ 78 Post-Procedure] Pulse Rate [Pre -Procedure] Respiratory 20 Rate Respiratory Rate [Intra- Procedure] Respiratory 22 Rate [Post- Procedure] Respiratory Rate [Pre- Procedure] Blood Pressure Blood Pressure [Intra- Procedure] Blood Pressure 148/66 [Post-Procedure ] Blood Pressure [Pre-Procedure] O2 Sat by Pulse Oximetry O2 Sat by Pulse Oximetry [ Intra-Procedure ] O2 Sat by Pulse 97 Oximetry [Post -Procedure] O2 Sat by Pulse Oximetry [Pre- Procedure] Constitutional: no acute distress, alert Eyes: non-icteric Neck: supple Effort: normal Ascultation: Right: clear, Left: diminished breath sounds Cardiovascular: regular rate and rhythm (no mrg) Gastrointestinal: normoactive bowel sounds, soft, non-tender, non-distended Integumentary: normal Extremities: no cyanosis, no edema Neurologic: normal mental status, non-focal exam, pupils equal and round, CN II- XII normal Psychiatric: mood appropriate, affect normal CBC and BMP: 12/11/17 19:15 12/07/17 14:35 ABG, PT/INR, D-dimer: PT/INR, D-dimer PT 12.8 Sec. (12.2-14.9) 12/11/17 19:15 INR 0.92 (0.87-1.13) 12/11/17 19:15 Abnormal lab findings: Abnormal Labs 12/07/17 12/07/17 12/08/17 14:35 14:35 Unknown [place] % (Auto) 10.4 H APTT Creatinine 0.6 L Glucose 107 H Fluid Glucose 115 H Fluid Total Protein 4.4 L 12/11/17 19:15 [place] % (Auto) APTT 86.6 H* Creatinine Glucose Fluid Glucose Fluid Total Protein
[2017-12-12] MEDS: LEVAQUIN PO SCH (15:49)
[2017-12-12] MEDS: PERCOCET 5/325 PO PRN (15:49)
--- NOTE | 2017-12-12 16:38 | Gastroenterology Consultation ---
History of Present Illness - Reason for Consult Consult date: 12/12/[address] Stomach Requesting physician: ARELIS VELAZQUEZ - History of Present Illness The patient is an 87 yo female admitted last week with SOB, and found to have a large L-sided pleural effusion. This was tapped, and adenocarcinoma was present , presumed due to lung. She underwent percutaneous biopsy of an underlying L lung mass, and has been dealing with a L PTX since then. She states over the last 2-3 days she has been breathing better, and she hopes to have the pleural catheter replaced tomorrow. She was noted on a staging CT of the A/P to have a possible lesion in the antrum of the stomach, but no surrounding LN or liver lesions. She has no epigastric pain, hx of PUD, N/V, or melena/hematemesis. She has never had an upper endoscopy, and does not take antiacids on a routine basis. Past History Past Medical History: cancer (New Dx L lung adenocarcinoma), hypertension, other (hypothyroidism) Past Surgical History: No surgical history, Other (reviewed) Social history: , lives with family. denies: smoking, alcohol abuse, prescription drug abuse Family history: no significant family history (reviewed) Medications and Allergies Allergies Allergy/AdvReac Type Severity Reaction Status Date / Time No Known Allergies Allergy Unverified 12/07/17 14:16 Home Medications Medication Instructions Recorded Confirmed Last Taken Type Levothyroxine [Synthroid] 75 mcg PO QAM 12/07/17 12/07/17 12/06/17 History Lisinopril [Zestril TAB] 10 mg PO QDAY 12/07/17 12/07/17 12/06/17 History Multivitamin [Multiple Vitamins] 1 each PO DAILY 12/07/17 12/07/17 12/06/17 History Active Meds: Active Medications Acetaminophen (Tylenol) 650 mg PO Q4H PRN PRN Reason: Pain MILD(1-3)/Fever >100.5/MORA Albuterol (Proventil) 2.5 mg IH Q4HRT PRN PRN Reason: Shortness Of Breath Last Admin: 12/10/17 13:22 Dose: 2.5 mg Heparin Sodium/Sodium Chloride (Heparin/ 0.45% Nacl-25,000 Unit/500 Ml) 25,000 unit in 500 mls @ 21 mls/hr IV TITR [facility]; Protocol Last Admin: 12/11/17 15:46 Dose: 1,050 units/hr, 21 mls/hr Levofloxacin (Levaquin) 750 mg PO Q24HR [facility] Last Admin: 12/12/17 15:49 Dose: 750 mg Levothyroxine Sodium (Synthroid) 75 mcg PO DAILY@0600 [facility] Last Admin: 12/12/17 05:11 Dose: 75 mcg Lisinopril (Zestril) 10 mg PO QDAY [facility] Last Admin: 12/12/17 10:00 Dose: Not Given Ondansetron HCl (Zofran) 4 mg IV Q4H PRN PRN Reason: Nausea And Vomiting Oxycodone/Acetaminophen (Percocet 5/325) 1 tab PO Q6H PRN PRN Reason: Pain, Moderate (4-6) Last Admin: 12/12/17 15:49 Dose: 1 tab Sodium Chloride (Sodium Chloride Flush Syringe 10 Ml) 10 ml IV BID [facility] Last Admin: 12/12/17 09:10 Dose: 10 ml Sodium Chloride (Sodium Chloride Flush Syringe 10 Ml) 10 ml IV PRN PRN PRN Reason: LINE FLUSH --I have reviewed and reconciled medications-- Review of Systems - Review of Systems All systems: negative (as noted in the HPI.) Exam - Constitutional Vital Signs: Temp Pulse Resp BP Pulse Ox 98.0 F 77 20 123/58 97 12/12/17 13:42 12/12/17 13:42 12/12/17 15:49 12/12/17 13:42 12/12/17 13:42 General appearance: no acute distress - EENT Eyes: PERRL, EOM intact ENT: hearing intact, clear oral mucosa - Neck Neck: supple, normal ROM - Respiratory Respiratory effort: normal Respiratory: bilateral: CTA (Chest tube on L) - Cardiovascular Rhythm: regular Heart Sounds: Present: S1 & S2 Extremities: no ischemia, No edema - Gastrointestinal General gastrointestinal: Present: soft, non-tender, non-distended - Integumentary Integumentary: Present: clear, warm, dry - Neurologic Neurological: alert and oriented x3 - Labs CBC & Chem 7: 12/11/17 19:15 12/07/17 14:35 Lab Results: Laboratory Results - last 24 hr 12/11/17 12/11/17 12/12/17 19:15 19:15 01:21 Plt Count 253 PT 12.8 INR 0.92 APTT 86.6 H* Heparin Anti-Xa Level 0.33 Assessment and Plan - Patient Problems (1) Adenocarcinoma, lung Current Visit: Yes Status: Acute Plan to address problem: - New dx and biopsy of L lung mass pending. (2) Abnormal CT scan, stomach Current Visit: Yes Status: Acute Plan to address problem: - Possible lesion in antrum of stomach on imaging (CT scan). - Discussed risks/benefits of EGD with patient; wants to wait a few days until chest tube removed, which I think is reasonable. - Since no melena nor anemia, I would not cover with PPI therapy at present.
[2017-12-13] MEDS: PERCOCET 5/325 PO PRN ×2 (03:05→17:51)
[2017-12-13 04:59] LABS: Hematocrit 36.8 % (30.3-42.9); Hemoglobin 12.6 gm/dl (10.1-14.3); Mean Corpuscular HGB Conc 34 % (30-34); Mean Corpuscular Hemoglobin 32 pg (28-32); Mean Corpuscular Volume 94 fl (79-97); Platelet Count 247 K/mm3 (140-440); Red Blood Count 3.93 M/mm3 (3.65-5.03); Red Cell Distribution Width 14.3 % (13.2-15.2)
[2017-12-13] MEDS: HEPARIN/ 0.45% NACL-25,000 UNIT/500 ML 25,000 UNIT/500 ML BAG IV SCH (05:16)
[2017-12-13 05:50] LABS: BUN/Creatinine Ratio 36; Blood Urea Nitrogen 18 mg/dL (7-17); Calcium 8.9 mg/dL (8.4-10.2); Hemolysis Index 11
[2017-12-13] MEDS: SYNTHROID PO SCH (06:01)
--- NOTE | 2017-12-13 08:52 | XRay Report ---
AP CHEST: HISTORY: Left chest tube, left pneumothorax Left chest tube is unchanged in position since 12/12/17 at 1003 hours. No significant left pneumothorax is visualized on today's exam. There is better aeration of the left lung although an approximate 7 cm left lower lobe mass or infiltrate is identified in the left lower lobe. The left upper lobe and right lung are generally clear. Heart size is stable and within normal limits. IMPRESSION: No significant left pneumothorax on today's exam. Left lower lobe mass or infiltrate.
--- NOTE | 2017-12-13 09:23 | Progress Note ---
Assessment and Plan Assessment and plan: 87 YO Female with no PMH presents to ED for evaluation. Pt states that she has experienced a runny nose and a nonproductive cough for the past week as well as shortness of breath with worsening symptoms over the past 3 days. Pt seen and evaluated in ED and found to have acute respiratory failure secondary to a large left pleural effusion. Pt denies fever, chills, unintentional weight loss , night sweats, bone pain, trauma, BRBPR, hemoptysis, or recent ill contacts. Pt resides in her home with her son. She proceeded to have a thoracentensis and subsequently Was noted to have Pneumothorax with chest tube placed. 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 Oncology following. (2)Pneumothorax Current Visit: Yes Status: Acute Plan to address problem: Patient with pneumothorax to receive chest to with lung biopsy. Pneumothorax Appears to have resolved with replacement of chest tube. Surgery managing chest tube (3) Acute respiratory failure Secondary to Malignant pulmonary effusion and compressive atelectasis Current Visit: Yes Status: Acute Qualifiers: Respiratory failure complication: hypoxia Qualified Code(s): J96.01 - Acute respiratory failure with hypoxia Plan to address problem: Secondary to malignant pleural effusion patient has biopsy scheduled tomorrow. CT scan abdomen and pelvis completed showed previous pneumothorax cholelithiasis endometrial thickening and possible mass in the antrum of the stomach. (4) Hypothyroidism Current Visit: Yes Status: Acute Plan to address problem: wnl No signs or symptoms of hypo-or hyperthyroidism. (5) Malignant Pleural effusion Current Visit: Yes Status: Acute Plan to address problem: Malignant pleural effusion empiric treatment with Levaquin most likely secondary to lung cancer versus metastasis. Biopsy pending DONE 12/12/17 (6) Acute DVT (deep venous thrombosis) AND Pulmonary Embolisim Current Visit: Yes Status: Acute Plan to address problem: Continue Heparin (7)Antrum Mass GI consulted for possible EGD. Appreciate input. Patient wants to wait till after chest tube removed. No PPI per GI (8)DVT prophylaxis Current Visit: Yes Status: Acute History Interval history: Patient seen and examined this morning still with mild discomfort from chest tube site. Denies chest pain nausea vomiting or diarrhea. Denies shortness of breath at this time. Hospitalist Physical - Physical exam Narrative exam: VITAL SIGNS: Reviewed. GENERAL: The patient appeared well nourished and normally developed. Vital signs as documented. HEAD: No signs of head trauma. EYES: Pupils are equal. Extraocular motions intact. EARS: Hearing grossly intact. MOUTH: Oropharynx is normal. NECK: No adenopathy, no JVD. CHEST: Chest with Left lobar breath sounds diminished. Chest tube. CARDIAC: Regular rate and rhythm. S1 and S2, without murmurs, gallops, or rubs. VASCULAR: No Edema. Peripheral pulses normal and equal in all extremities. ABDOMEN: Soft, without detectable tenderness. No sign of distention. No rebound or guarding, and no masses palpated. Bowel Sounds normal. MUSCULOSKELETAL: Good range of motion of all major joints. Extremities without clubbing, cyanosis or edema. NEUROLOGIC EXAM: Alert and oriented x 3. No focal sensory or strength deficits. Speech normal. Follows commands. PSYCHIATRIC: Mood normal. SKIN: No rash or lesions. - Constitutional Vitals: Temp Pulse Resp BP Pulse Ox 98.0 F 74 20 113/51 93 12/13/17 07:25 12/13/17 07:25 12/13/17 07:25 12/13/17 07:25 12/13/17 07:25 General appearance: Present: no acute distress, well-nourished Results - Labs CBC & Chem 7: 12/13/17 04:42 12/13/17 04:42 Labs: Laboratory Last Values WBC 6.4 K/mm3 (4.5-11.0) 12/13/17 04:42 RBC 3.93 M/mm3 (3.65-5.03) 12/13/17 04:42 Hgb 12.6 gm/dl (10.1-14.3) 12/13/17 04:42 Hct 36.8 % (30.3-42.9) 12/13/17 04:42 MCV 94 fl (79-97) 12/13/17 04:42 MCH 32 pg (28-32) 12/13/17 04:42 MCHC 34 % (30-34) 12/13/17 04:42 RDW 14.3 % (13.2-15.2) 12/13/17 04:42 Plt Count 247 K/mm3 (140-440) 12/13/17 04:42 Lymph % (Auto) 21.6 % (13.4-35.0) 12/07/17 14:35 [place] % (Auto) 10.4 % (0.0-7.3) H 12/07/17 14:35 Eos % (Auto) 1.4 % (0.0-4.3) 12/07/17 14:35 Baso % (Auto) 1.0 % (0.0-1.8) 12/07/17 14:35 Lymph # 1.7 K/mm3 (1.2-5.4) 12/07/17 14:35 [place] # 0.8 K/mm3 (0.0-0.8) 12/07/17 14:35 Eos # 0.1 K/mm3 (0.0-0.4) 12/07/17 14:35 Baso # 0.1 K/mm3 (0.0-0.1) 12/07/17 14:35 Seg Neutrophils % 65.6 % (40.0-70.0) 12/07/17 14:35 Seg Neutrophils # 5.1 K/mm3 (1.8-7.7) 12/07/17 14:35 PT 12.8 Sec. (12.2-14.9) 12/11/17 19:15 INR 0.92 (0.87-1.13) 12/11/17 19:15 APTT 86.6 Sec. (24.2-36.6) H* 12/11/17 19:15 Heparin Anti-Xa Level 0.34 U.I./ml (0.3-0.7) 12/13/17 04:42 Sodium 138 mmol/L (137-145) 12/13/17 04:42 Potassium 4.3 mmol/L (3.6-5.0) 12/13/17 04:42 Chloride 100.7 mmol/L (98-107) 12/13/17 04:42 Carbon Dioxide 28 mmol/L (22-30) 12/13/17 04:42 Anion Gap 14 mmol/L 12/13/17 04:42 BUN 18 mg/dL (7-17) H 12/13/17 04:42 Creatinine 0.5 mg/dL (0.7-1.2) L 12/13/17 04:42 Estimated GFR > 60 ml/min 12/13/17 04:42 BUN/Creatinine Ratio 36 % 12/13/17 04:42 Glucose 119 mg/dL (65-100) H 12/13/17 04:42 Calcium 8.9 mg/dL (8.4-10.2) 12/13/17 04:42 Troponin T < 0.010 ng/mL (0.00-0.029) 12/07/17 15:33 NT-Pro-B Natriuret Pep 48.51 pg/mL (0-900) 12/07/17 15:33 TSH 1.380 mlU/mL (0.270-4.200) 12/08/17 15:28 Thyroxine (T4) 8.9 ug/dL (4.0-12.0) 12/08/17 15:28 Fluid Type Pleural 12/08/17 Unknown Fluid Color Yellow 12/08/17 Unknown Fluid Appearance Clear 12/08/17 Unknown Fluid pH 7.467 12/08/17 Unknown Fluid WBC 120 /mm3 12/08/17 Unknown Fluid RBC 117 /mm3 12/08/17 Unknown Fluid Seg Neutrophils 3.0 % 12/08/17 Unknown Fluid Lymphocytes 30.0 % 12/08/17 Unknown Fluid Reactive Lymphs 0 % 12/08/17 Unknown Fluid Monocytes 62.0 % 12/08/17 Unknown Fluid Eosinophils 5.0 % 12/08/17 Unknown Fluid Basophils 0 % 12/08/17 Unknown Fluid Glucose 115 mg/dL (40-70) H 12/08/17 Unknown Fluid Total Protein 4.4 (15.0-45.0) L 12/08/17 Unknown Fluid LDH 315 12/08/17 Unknown Fluid Comment Diff performed 12/08/17 Unknown
--- NOTE | 2017-12-13 09:56 | Progress Note ---
Assessment and Plan 87 yo F s/p L chest tube placement 1. L PTX 2. Lung mass, path - pulmonary adenocarcinoma 3. malignant pleural effusion Plan: 1. L Chest tube to water seal 2. repeat CXR in am - if no PTX, will consider removing chest tube. 3. pulm toilet/encourage IS 4. PRN pain control Thank you for this consultation, please call with questions or concerns. Subjective Date of service: 12/13/17 Narrative: Pt seen and examined. Feels well today. No abd pain, n/v, sob, cp. She has been off of supplemental O2 since yesterday evening and feels well. No cough. Objective Vital Signs - 12hr 12/12/17 12/12/17 12/13/17 22:00 23:00 02:43 Temperature 98.9 F Pulse Rate 83 86 Pulse Rate [ 82 From Monitor] Respiratory 20 Rate Respiratory 20 Rate [Left Lateral Back] Blood Pressure 127/63 O2 Sat by Pulse 94 Oximetry 12/13/17 12/13/17 12/13/17 03:05 04:05 07:25 Temperature 98.0 F Pulse Rate 74 Pulse Rate [ From Monitor] Respiratory 18 18 20 Rate Respiratory Rate [Left Lateral Back] Blood Pressure 113/51 O2 Sat by Pulse 93 Oximetry - General physical appearance Narrative Exam: Gen: AAOx3. NAD CV: S1, s2+ resp: CTAB, no w/r/r. L Chest tube in place with serous pleural fluid in canister. No air leak. Ext: no c/c/e - Labs 12/13/17 04:42 12/13/17 04:42 Diabetes panel 12/13/17 Range/Units 04:42 Sodium 138 (137-145) mmol/L Potassium 4.3 (3.6-5.0) mmol/L Chloride 100.7 (98-107) mmol/L Carbon Dioxide 28 (22-30) mmol/L BUN 18 H (7-17) mg/dL Creatinine 0.5 L (0.7-1.2) mg/dL Glucose 119 H (65-100) mg/dL Calcium 8.9 (8.4-10.2) mg/dL Calcium panel 12/13/17 Range/Units 04:42 Calcium 8.9 (8.4-10.2) mg/dL Pituitary panel 12/13/17 Range/Units 04:42 Sodium 138 (137-145) mmol/L Potassium 4.3 (3.6-5.0) mmol/L Chloride 100.7 (98-107) mmol/L Carbon Dioxide 28 (22-30) mmol/L BUN 18 H (7-17) mg/dL Creatinine 0.5 L (0.7-1.2) mg/dL Glucose 119 H (65-100) mg/dL Calcium 8.9 (8.4-10.2) mg/dL Adrenal panel 12/13/17 Range/Units 04:42 Sodium 138 (137-145) mmol/L Potassium 4.3 (3.6-5.0) mmol/L Chloride 100.7 (98-107) mmol/L Carbon Dioxide 28 (22-30) mmol/L BUN 18 H (7-17) mg/dL Creatinine 0.5 L (0.7-1.2) mg/dL Glucose 119 H (65-100) mg/dL Calcium 8.9 (8.4-10.2) mg/dL
[2017-12-13] MEDS: LEVAQUIN PO SCH (10:37)
[2017-12-13] MEDS: SODIUM CHLORIDE FLUSH SYRINGE 10 ML IV SCH ×2 (10:37→21:32)
[2017-12-13] MEDS: ZESTRIL PO SCH (10:38)
--- NOTE | 2017-12-13 13:03 | Hem/Onc Progress Note ---
Assessment and Plan - Patient Problems (1) Pleural effusion Current Visit: Yes Status: Acute Plan to address problem: Plan is to dc chest tube and dc home. needs outpatient follow up. Spoke with dr Linn and EGFR ALK and ROS1 have been sent out. Subjective Date of service: 12/13/17 Interval history: HAd lung biopsy yesterday. For MRI Objective - Constitutional Vitals: Last Vital Signs Temp 98.0 F 12/13/17 07:25 Pulse 74 12/13/17 10:00 Resp 20 12/13/17 07:25 BP 113/51 12/13/17 07:25 Pulse Ox 93 12/13/17 07:25 Pain Intensity (0-10): denies any pain - EENT ENT: hearing intact Lymph node exam: negative cervical - Neck Neck: supple - Labs Lab Results: Laboratory Results - last 24 hr 12/13/17 12/13/17 12/13/17 04:42 04:42 04:42 WBC 6.4 RBC 3.93 Hgb 12.6 Hct 36.8 MCV 94 MCH 32 MCHC 34 RDW 14.3 Plt Count 247 Heparin Anti-Xa Level 0.34 Sodium 138 Potassium 4.3 Chloride 100.7 Carbon Dioxide 28 Anion Gap 14 BUN 18 H Creatinine 0.5 L Estimated GFR > 60 BUN/Creatinine Ratio 36 Glucose 119 H Calcium 8.9
--- NOTE | 2017-12-13 13:27 | Progress Note ---
Assessment and Plan 87 y/o female with lung mass status post biopsy, now with PTX status post chest tube placement. 1. Will ask family about Pleurx catheter 2. If they elect to do so, may attempt to arrange outpatient placement Subjective Date of service: 12/13/17 Principal diagnosis: SOB Interval history: Biopsy and Pleural fluid both malignant. Chest tube in place but still draining. Spoke with surgery over the phone today about plans with chest tube. Just reviewed Onc Note. Objective Vital Signs - 12hr 12/13/17 12/13/17 12/13/17 02:43 03:05 04:05 Temperature 98.9 F Pulse Rate 86 Respiratory 20 18 18 Rate Blood Pressure 127/63 O2 Sat by Pulse 94 Oximetry 12/13/17 12/13/17 07:25 10:00 Temperature 98.0 F Pulse Rate 74 74 Respiratory 20 Rate Blood Pressure 113/51 O2 Sat by Pulse 93 Oximetry Constitutional: no acute distress, alert Eyes: non-icteric Neck: supple Effort: normal Ascultation: Right: clear, Left: diminished breath sounds Cardiovascular: regular rate and rhythm (no mrg) Gastrointestinal: normoactive bowel sounds, soft, non-tender, non-distended Integumentary: normal Extremities: no cyanosis, no edema Neurologic: normal mental status, non-focal exam, pupils equal and round, CN II- XII normal Psychiatric: mood appropriate, affect normal CBC and BMP: 12/13/17 04:42 12/13/17 04:42 ABG, PT/INR, D-dimer: PT/INR, D-dimer PT 12.8 Sec. (12.2-14.9) 12/11/17 19:15 INR 0.92 (0.87-1.13) 12/11/17 19:15 Abnormal lab findings: Abnormal Labs 12/07/17 12/07/17 12/08/17 14:35 14:35 Unknown [place] % (Auto) 10.4 H APTT BUN Creatinine 0.6 L Glucose 107 H Fluid Glucose 115 H Fluid Total Protein 4.4 L 12/11/17 12/13/17 19:15 04:42 [place] % (Auto) APTT 86.6 H* BUN 18 H Creatinine 0.5 L Glucose 119 H Fluid Glucose Fluid Total Protein
--- NOTE | 2017-12-13 15:12 | XRay Report ---
AP CHEST: HISTORY: Pneumothorax, left chest tube No change since earlier today at 0820 hours. Left chest tube is unchanged. No recurrent pneumothorax. Left lower lobe mass is suspected. IMPRESSION: No change.
--- NOTE | 2017-12-13 15:23 | Magnetic Resonance Report ---
MRI BRAIN WITH/WITHOUT CONTRAST: History: Lung mass, evaluate for metastatic disease. Technique: Multiple T1 and T2 weighted images were obtained in multiple planes. Axial diffusion and gradient imaging was performed. Post contrast T1 images in two planes were obtained following IV gadolinium. Findings: The brain parenchyma signal intensity and its carrion-white interface are normal on all sequences. No abnormal parenchymal signal. No diffusion restriction, hemorrhage, mass effect or extra-axial fluid collection. Ventricular size is normal and symmetric. The basal cisterns are clear. The brainstem and cerebellar hemispheres are within normal limits. The fourth ventricle is midline. The paranasal sinuses and mastoid air cells are well aerated. Normal flow voids are identified in the appropriate vessels at the [place] of [place]. No abnormal enhancement is identified following IV gadolinium. Impression: 1. Unremarkable MRI brain with and without contrast.
--- NOTE | 2017-12-13 17:42 | Gastroenterology Progress Note ---
Assessment and Plan - Patient Problems (1) Adenocarcinoma, lung Current Visit: Yes Status: Acute Plan to address problem: - New dx and mets to pleura (malignant effusion). (2) Abnormal CT scan, stomach Current Visit: Yes Status: Acute Plan to address problem: - Possible lesion in antrum of stomach on imaging (CT scan). - Discussed risks/benefits of EGD with patient; wants to wait a few days until chest tube removed, which I think is reasonable. - Since no melena nor anemia, I would not cover with PPI therapy at present. Subjective Date of service: 12/13/17 Principal diagnosis: Abnormal CT of stomach Interval history: The patient still has a chest tube on the left; moderate discomfort but no N/V/ fevers. She is tolerating a regular diet. Objective - Constitutional Vitals: Temp Pulse Resp BP Pulse Ox 97.8 F 80 20 131/58 93 12/13/17 15:30 12/13/17 15:30 12/13/17 15:30 12/13/17 15:30 12/13/17 15:30 General appearance: no acute distress - Respiratory Respiratory effort: normal Respiratory: bilateral: CTA (Chest tube on left) - Cardiovascular Rhythm: regular Heart Sounds: Present: S1 & S2 - Gastrointestinal General gastrointestinal: Present: soft, non-tender, non-distended - Labs CBC & Chem 7: 12/13/17 04:42 12/13/17 04:42 Labs: Laboratory Results - last 24 hr 12/13/17 12/13/17 12/13/17 04:42 04:42 04:42 WBC 6.4 RBC 3.93 Hgb 12.6 Hct 36.8 MCV 94 MCH 32 MCHC 34 RDW 14.3 Plt Count 247 Heparin Anti-Xa Level 0.34 Sodium 138 Potassium 4.3 Chloride 100.7 Carbon Dioxide 28 Anion Gap 14 BUN 18 H Creatinine 0.5 L Estimated GFR > 60 BUN/Creatinine Ratio 36 Glucose 119 H Calcium 8.9
[2017-12-14] MEDS: SYNTHROID PO SCH (05:52)
[2017-12-14] MEDS ORDERED: HEPARIN IV SCH (07:00)
[2017-12-14] MEDS ORDERED: NACL 0.45% IV SCH (07:00)
--- NOTE | 2017-12-14 08:22 | XRay Report ---
AP CHEST: HISTORY: Left chest tube, pneumothorax The left chest tube and left lower lobe mass are unchanged since 12/13/17. No pneumothorax. IMPRESSION: No change.
[2017-12-14] MEDS: LEVAQUIN PO SCH (09:34)
[2017-12-14] MEDS: SODIUM CHLORIDE FLUSH SYRINGE 10 ML IV SCH (09:35)
[2017-12-14] MEDS: ZESTRIL PO SCH (09:36)
--- NOTE | 2017-12-14 09:47 | Progress Note ---
Assessment and Plan 87 yo F s/p L chest tube placement 1. L PTX 2. Lung mass, path - pulmonary adenocarcinoma 3. malignant pleural effusion Plan: 1. CXR reviewed - no PTX. 2. D/W Dr. Schaeffer, will consider pleurX catheter if effusion reoccurs as outpatient. Chest tube removed. 3. pulm toilet/encourage IS 4. PRN pain control 5. outpatient pulm follow up, dc planning per 1' team. Thank you for this consultation, please call with questions or concerns. Subjective Date of service: 12/14/17 Narrative: Pt seen and examined. No acute complaints. Feels well. No CP, SOB. Objective Vital Signs - 12hr 12/13/17 12/14/17 12/14/17 22:00 02:32 07:47 Temperature 98.3 F 97.4 F L Pulse Rate 65 74 90 Respiratory 20 18 Rate Blood Pressure 108/49 127/67 O2 Sat by Pulse 95 96 95 Oximetry 12/14/17 09:36 Temperature Pulse Rate 74 Respiratory Rate Blood Pressure 108/49 O2 Sat by Pulse Oximetry - General physical appearance Narrative Exam: Gen: AAOx3. NAD CV: s1, S2+ Resp: even and unlabored. L Ct in place on water seal. No leak. serous fluid in tubing and collection chamber Ext: no c/c/e Chest tube removal. Dressing removed. Skin sutures cut and pigtail catheter occluded and cut. Removed intact on peak of inspiration. Skin incision covered with occlusive dressing. Patient tolerated well. All instruments disposed of appropriately. - Labs 12/13/17 04:42 12/13/17 04:42
--- NOTE | 2017-12-14 12:24 | Vascular Lab Report ---
LOWER EXTREMITY VENOUS DUPLEX: REASON FOR EXAM: Short of breath. COMMENTS ON THE RIGHT: All veins visualized are freely compressible without evidence of internal echogenicity. Flow is spontaneous and phasic throughout. COMMENTS ON THE LEFT: There is acute thrombus in the distal left peroneal vein. The remaining veins visualized are freely compressible without evidence of internal echogenicity. Spontaneous and phasic flow is present proximally. IMPRESSION: Acute deep venous thrombosis of the distal left peroneal vein. No evidence of acute deep venous thrombosis in the right lower extremity.
--- NOTE | 2017-12-14 13:38 | Discharge Summary ---
Providers - Providers Date of Admission: 12/07/17 16:11 Date of discharge: 12/14/17 Attending physician: PRINCESS FONTAINE 12/07/17 19:54 Consult to Interventional Radiology [CONS] Routine Consulting Provider: JAKY FLORES Reason For Exam: left thoracentesis Place consult to:: ANSWERING SERVICE Notified:: YES Phone number called:: [phone] Was contact made?: Yes If yes, spoke with:: LEEANN Time called:: 08:22 Comment:: NU Consult to Physician [CONS] Routine Comment: DR. DEL ROSARIO O/C / NU Consulting Provider: LEANNE JAIN Physician Instructions: Reason For Exam: left pleural effusion 12/08/17 18:13 Consult to Physician [CONS] Stat Comment: Consulting Provider: NEISHA MONTE Physician Instructions: Reason For Exam: Chest Tube 12/08/17 18:18 Consult to Physician [CONS] Stat Comment: Consulting Provider: KANG DEL ROSARIO Physician Instructions: Reason For Exam: Pneumothorax 12/09/17 10:50 Consult to Physician [CONS] Routine Comment: HUANG Consulting Provider: AVE VALDEZ Physician Instructions: CALLED DR VALDEZ @ [phone]([facility]) Reason For Exam: New adenocarcinoma 12/09/17 11:28 Consult to Physician [CONS] Stat Comment: HUANG Consulting Provider: KANG DEL ROSARIO Physician Instructions: CALLED DR DEL ROSARIO @ [phone]([facility]) Reason For Exam: Pulmonary Embolism 12/11/17 14:27 Consult to Interventional Radiology [CONS] Routine Consulting Provider: JAKY FLORES Reason For Exam: Please place catheter for PTX at time of bx Place consult to:: Notified:: Phone number called:: [phone] Was contact made?: Yes If yes, spoke with:: Time called:: 15:59 Comment:: NITA 12/12/17 09:09 Consult to Physician [CONS] Routine Comment: Consulting Provider: STACIE ARGUETA Physician Instructions: Reason For Exam: Antrum mass Primary care physician: EX ASSISTANT/PROGRAM DIRECTOR Hospitalization Condition: Fair Disposition: DC/TX-06 HOME UNDER HOME HLTH - Discharge Diagnoses (1) Lung cancer Status: Acute (2) Acute DVT (deep venous thrombosis) Status: Acute (3) Acute respiratory failure Status: Acute Qualifiers: Respiratory failure complication: hypoxia Qualified Code(s): J96.01 - Acute respiratory failure with hypoxia (4) Adenocarcinoma, lung Status: Acute (5) Hypothyroidism Status: Chronic (6) Pleural effusion Status: Acute (7) Pneumothorax Status: Acute (8) Pulmonary embolism Status: Acute Core Measure Documentation - Palliative Care Palliative Care/ Comfort Measures: Not Applicable - Core Measures Any of the following diagnoses?: DVT/PE - VTE Discharge Requirements Deep Vein Thrombosis/Pulmonary Embolism Present on Admission: Yes Has pt received <5 days of overlap therapy or INR<2.0: Yes Anticoagulant overlap therapy prescribed at discharge: No Contraindication No Overlap Therapy order at DC: Not Indicated (On Lovenox) Exam - Constitutional Vitals: Temp Pulse Resp BP Pulse Ox 97.4 F L 74 20 108/49 95 12/14/17 07:47 12/14/17 09:36 12/14/17 09:00 12/14/17 09:36 12/14/17 07:47 Plan Activity: advance as tolerated Diet: regular Special Instructions: home health RN Additional Instructions: 1.Follow up with PCP in 1 week. [address] up[address]. Flores, Oncology on Tuesday12/20/17. 3.follow up with Dr. Del Rosario Pulm in 1 week. 4.Follow up with Dr. Goff, GI in 1 week Follow up with: PRIMARY CARE, [Primary Care Provider] - 3-5 Days Prescriptions: Levofloxacin [Levaquin] 750 mg PO QDAY #3 tablet oxyCODONE /ACETAMINOPHEN [Percocet 5/325 mg] 1 tab PO Q6H PRN #12 tablet PRN Reason: Pain, Moderate (4-6)
--- NOTE | 2017-12-14 14:35 | Progress Note ---
Assessment and Plan 87 y/o female with lung mass status post biopsy, now with PTX status post chest tube placement. 1. Agree with discharge to home 2. Follow up with Saskia as an outpatient 3. Will need 2 view CXR day of visit 4. If pleural effusion reaccumulates, which It likely will, will need pleurx for comfort measures. Subjective Date of service: 12/14/17 Principal diagnosis: Abnormal CT of stomach Interval history: Chest tube removed. Stable. Objective Vital Signs - 12hr 12/14/17 12/14/17 12/14/17 07:47 09:00 09:36 Temperature 97.4 F L Pulse Rate 90 74 Respiratory 18 20 Rate Blood Pressure 127/67 108/49 O2 Sat by Pulse 95 Oximetry Constitutional: no acute distress, alert Eyes: non-icteric Neck: supple Effort: normal Ascultation: Right: clear, Left: diminished breath sounds Cardiovascular: regular rate and rhythm (no mrg) Gastrointestinal: normoactive bowel sounds, soft, non-tender, non-distended Integumentary: normal Extremities: no cyanosis, no edema Neurologic: normal mental status, non-focal exam, pupils equal and round, CN II- XII normal Psychiatric: mood appropriate, affect normal CBC and BMP: 12/13/17 04:42 12/13/17 04:42 ABG, PT/INR, D-dimer: PT/INR, D-dimer PT 12.8 Sec. (12.2-14.9) 12/11/17 19:15 INR 0.92 (0.87-1.13) 12/11/17 19:15 Abnormal lab findings: Abnormal Labs 12/07/17 12/07/17 12/08/17 14:35 14:35 Unknown [place] % (Auto) 10.4 H APTT BUN Creatinine 0.6 L Glucose 107 H Fluid Glucose 115 H Fluid Total Protein 4.4 L 12/11/17 12/13/17 19:15 04:42 [place] % (Auto) APTT 86.6 H* BUN 18 H Creatinine 0.5 L Glucose 119 H Fluid Glucose Fluid Total Protein
[2017-12-14 15:07] VITALS: BP 122/64
--- NOTE | 2017-12-14 15:09 | Event Note ---
Date: 12/14/17 Patient being d/c today on anticoagulation for blood clot. Will defer EGD until patient has f/u with Oncology to discuss treatment for primary lung cancer. If on anticoagulation, could get a screening UGI series first (as lesion on CT may have been artifact or food). Will sign off since being d/c today; please call if needed.
== END 2017-12-14 17:10 | disposition home health service (06) | DRG 180 ==
LOC: ED 13:41 → 2B-ACE 16:11
PROVIDERS: ADMIT Internal Medicine; ATTEND Internal Medicine
PROC: 0W9B30Z Drainage of Left Pleural Cavity with Drainage Device, Percutaneous Approach (ICD-10-PCS; principal; 2017-12-08)
PROC: 0W9B3ZZ Drainage of Left Pleural Cavity, Percutaneous Approach (ICD-10-PCS; 2017-12-08)
PROC: 0BBL3ZX Excision of Left Lung, Percutaneous Approach, Diagnostic (ICD-10-PCS; 2017-12-12)
DX: C34.90 Malignant neoplasm of unspecified part of unspecified bronchus or lung (principal); J96.01 Acute respiratory failure with hypoxia; I26.99 Other pulmonary embolism without acute cor pulmonale; J93.83 Other pneumothorax; J90 Pleural effusion, not elsewhere classified; I82.409 Acute embolism and thrombosis of unspecified deep veins of unspecified lower extremity; J98.11 Atelectasis; I10 Essential (primary) hypertension; E03.9 Hypothyroidism, unspecified; Z79.899 Other long term (current) drug therapy
CPT/HCPCS: 32551; 32555; 36415; 70553; 71045; 71250; 71260; 74177; 77012; 80048; 82947; 83605; 83880; 84160; 84436; 84443; 84484; 85014; 85018; 85025; 85027; 85049; 85520; 85610; 85730; 88112; 88173; 88305; 88333; 88341; 88342; 89051; 93005; 93010; 93970; 94640; 94760; A9577; C1769; J1644; J2060; J2250; J2405; J3010; Q9967

== ENCOUNTER 2018-09-11 07:37 | Emergency (ER) | payer MEDICARE, OTHER ==
--- NOTE | 2018-09-11 07:51 | Emergency Department Report ---
ED CPR HPI - General Chief Complaint: Cardiac Arrest/CPR Stated Complaint: CARDIAC Time Seen by Provider: 09/11/18 07:46 Source: EMS (verbal report received from EMS.ems notes not available at time of chart dictation), RN notes reviewed, old records reviewed Mode of arrival: Stretcher Limitations: Other (nonverbal, receiving chest compressions and bag valve mask ventilation) - History of Present Illness Initial Comments: This is an 88-year-old female, with a documented history of malignant pleural effusion, and metastatic lung cancer. Patient is brought to the hospital by EMS for out of hospital cardiac arrest. Last known well time is not known. As per verbal report from EMS, patient has been pulseless, asystolic, for approximately 20-25 minutes prior to arrival. EMS initiated mechanical chest compressions in the field, placed her right lower extremity intraosseous line in the right leg, the patient received bag valve mask ventilation. Upon arrival to the ER, the patient is pulseless, and pupils do not react to light. The patient has no signs of higher cortical or brainstem activity. She receives high-quality CPR. She received standard ACLS medications. Repeat pulse check demonstrates asystole. Resuscitation efforts are terminated secondary to medical futility. Family is not currently available for collateral information. MD Complaint: found unresponsive -: unknown Place: home Initial Findings in the Field: PEA ROSC in the Field: No Associated Injuries: No Treatments Prior to Arrival: BMV, chest compressions, epinephrine mgs #, other - Related Data Home Medications Medication Instructions Recorded Confirmed Last Taken Levothyroxine [Synthroid] 75 mcg PO QAM 12/07/17 07/11/18 12/06/17 Lisinopril [Zestril TAB] 10 mg PO QDAY 12/07/17 07/11/18 12/06/17 Multivitamin [Multiple Vitamins] 1 each PO DAILY 12/07/17 07/11/18 12/06/17 Rivaroxaban [Xarelto] 20 mg PO QHS 04/01/18 07/11/18 Unknown Allergies Allergy/AdvReac Type Severity Reaction Status Date / Time No Known Allergies Allergy Verified 04/01/18 04:07 ED Review of Systems ROS: Stated complaint: CARDIAC Other details as noted in HPI Comment: Unobtainable due to pts medical conditions ED Past Medical Hx - Past Medical History Hx Hypertension: Yes Hx Deep Vein Thrombosis: Yes Hx Pulmonary Embolism: Yes Additional medical history: hypothyroid. lung CA - Social History Smoking Status: Never Smoker - Medications Home Medications: Home Medications Medication Instructions Recorded Confirmed Last Taken Type Levothyroxine [Synthroid] 75 mcg PO QAM 12/07/17 07/11/18 12/06/17 History Lisinopril [Zestril TAB] 10 mg PO QDAY 12/07/17 07/11/18 12/06/17 History Multivitamin [Multiple Vitamins] 1 each PO DAILY 12/07/17 07/11/18 12/06/17 History Rivaroxaban [Xarelto] 20 mg PO QHS 04/01/18 07/11/18 Unknown History ED Physical Exam - General Limitations: Other (receiving bag valve mask ventilation, nonverbal) General appearance: cachectic, other (patient is nonverbal) - Head Head exam: Present: atraumatic - Eye Eye exam: Present: other (pupils do not react to light) - ENT ENT exam: Present: mucous membranes dry, other (oral airway noted in the oropharynx) - Neck Neck exam: Present: normal inspection - Respiratory Respiratory exam: Present: other (no breath sounds) - Cardiovascular Cardiovascular Exam: Present: other (patient is pulseless) - GI/Abdominal GI/Abdominal exam: Present: soft - Extremities Exam Extremities exam: Present: normal inspection, other (intraosseous line noted in the right lower extremity) - Back Exam Back exam: Present: normal inspection - Neurological Exam Neurological exam: Present: other (nonverbal, GCS of 3) - Psychiatric Psychiatric exam: Present: other (patient is nonverbal) - Skin Skin exam: Present: ecchymosis ED Medical Decision Making - Medical Decision Making Differential diagnosis, including but not limited to: Acute coronary syndrome, pulmonary embolus, intracranial hemorrhage, pericardial tamponade Critical care attestation.: If time is entered above; I have spent that time in minutes in the direct care of this critically ill patient, excluding procedure time. ED Disposition Clinical Impression: Cardiac arrest Disposition: DC-20 Is pt being admited?: No Does the pt Need Aspirin: No Condition: Undetermined Referrals: PRIMARY CARE, [Primary Care Provider] - 3-5 Days
[2018-09-11] MEDS ORDERED: ADRENALIN ONE (20:00)
== END 2018-09-11 10:43 ==
LOC: ED 07:37
DX: I46.9 Cardiac arrest, cause unspecified (principal); I10 Essential (primary) hypertension; E03.9 Hypothyroidism, unspecified; Z86.718 Personal history of other venous thrombosis and embolism; Z86.711 Personal history of pulmonary embolism; Z85.118 Personal history of other malignant neoplasm of bronchus and lung
CPT/HCPCS: 92950; 99285; J0171